=== PATIENT | male | born 1960 | race Caucasian/White ===

== ENCOUNTER 2021-10-10 15:12 | Outpatient (CLI) | payer OTHER, SELFPAY ==
--- NOTE | ~2021-10-10 | US_ITS ---
EXAMINATION: US venous doppler [facility] DATE: 10/10/2021 16:11 INDICATION: Left lower limb edema. TECHNIQUE: Grayscale ultrasound images without and with compression and Doppler ultrasound images of the left lower extremity veins were obtained. COMPARISON: None. FINDINGS: The visualized portions of left common femoral vein, profunda (deep) femoral vein, femoral vein, popl iteal vein, peroneal veins, posterior tibial veins, and greater saphenous vein outflow are patent. IMPRESSION: 1. No deep venous thrombosis. Reviewed, dictated and finalized at location A. UNITY OUTREACH DIRECTOR
== END 2021-10-10 15:13 | disposition home or self-care (01) ==
LOC: ANHIMG 15:22
PROVIDERS: PCP Physician Assistant; Visit Provider Physician Assistant
DX: R60.0 Localized edema (principal)
CPT/HCPCS: 93971

== ENCOUNTER 2023-05-23 15:00 | Outpatient (RCR) | payer OTHER, SELFPAY ==
--- NOTE | 2023-03-29 12:01 | PTOPEVAL1 ---
Assessment and note entered by Orly Cody, PT Evaluation Information Assessment Status Evaluation Diagnosis R shoulder arthroscopy Onset February 20, 2023 Subjective Information Patient is 1 month post op R shoulder arthroscopy. Patient had sling removed this week, patient instructed by dr to avoid lifting anything heavier than a dinner plate also educated to avoid abduction. Patient has pulleys at home and MD educated to perform for 1 hour daily in 15 minute intervals. Pain currently reported as 2/10 in R shoulder. 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 Reported Pain Level Pain Score 3: Self Report Assessment PT Clinical Summary Patient presents following R shoulder arthroscopy. Patient currently rating pain as 3/[address] Cardenas no AROM or strengthening at this time, per patient no abduction. Patient presents with decreased passive range of motion, decreased isometric R shoulder strength, postural impairments, and pain. Patient would benefit from skilled therapy services 3x/wk for 4 wks to improve R shoulder mobility and decrease pain Plan of Care Interventions Hot Pack/Cold Pack,Manual Lymph Drainage,Manual Therapy,Neuro Re-education,Patient/Caregiver Education,Therapeutic Activities,Therapeutic Exercise Other Interventions taping, cuping, iastm PT Services Indicated Yes Treatment Frequency and 3x/wk for 4 wks Duration These treatments will address the objective and functional deficits as defined above. The patient will be advanced safely and appropriately in order for the patient to progress towards his/her prior level of function. Additional exercises will be introduced and as well as a comprehensive home exercise program upon discharge, if needed, ?to ensure carryover of functional gains achieved in the clinic. This treatment plan has been reviewed and agreement upon by the patient.
--- NOTE | 2023-03-29 12:02 | OPREHPOC ---
Outpatient Therapy Plan of Care This is a Multidisciplinary Plan of Care that may contain components documented by all disciplines (PT, OT, and ST.) PT Problem 1 PT Problem #1 Knowledge Deficit PT Goal 1 Goal Patient will demonstrate independence with home exercise program PT Problem 2 PT Problem #2 Impaired Range of Motion PT Goal 1 Goal Patient will demonstrate passive R shoulder flexion 120 degrees Patient will demonstrate passive R shoulder external rotation to 70 degrees PT Problem 3 PT Problem #3 Pain PT Goal 1 Goal Patient will report R shoulder pain as 1/10 PT Problem 4 PT Problem #4 Impaired Strength PT Goal 1 Goal Patient will grossly demonstrate 4/5 R shoulder strength as allowed by protocol
--- NOTE | 2023-04-26 10:35 | PTOPREEVAL ---
Assessment and note entered by Orly Cody, PT Evaluation Information Assessment Status Progress Diagnosis R shoulder arthroscopy Onset February 20, 2023 Subjective Information Patient reports pain as R shoulder 1/, reports good compliance with home exercise program. Reports surgeon was happy with his range of motion and directed to begin strengthening and continue with stretching. Reported Pain Level Pain Score 1: Self Report Pain Score 1: Self Report Assessment PT Clinical Summary Patient has progressed well with physical therapy at this time with improvements noted in R shoulder range of motion. Patient presents with decreased R shoulder flexion/abduction/external rotation active range of motion with capsular tightness, R shoulder weakness, and postural impairments at this time. Recommending skilled PT services 1-2x/ wk for 4 weeks to improve range of motion, increase strength in order to reduce R shoulder pain and return to daily activities. Plan of Care Interventions Hot Pack/Cold Pack,Manual Therapy,Patient/ Caregiver Education,Therapeutic Activities, Therapeutic Exercise Other Interventions cupping, taping, iastm PT Services Indicated Yes Treatment Frequency and 1-2x/wk for 4 weeks Duration These treatments will address the objective and functional deficits as defined above. The patient will be advanced safely and appropriately in order for the patient to progress towards his/her prior level of function. Additional exercises will be introduced and as well as a comprehensive home exercise program upon discharge, if needed, ?to ensure carryover of functional gains achieved in the clinic. This treatment plan has been reviewed and agreement upon by the patient.
--- NOTE | 2023-04-26 10:36 | OPREHPOC ---
Outpatient Therapy Plan of Care This is a Multidisciplinary Plan of Care that may contain components documented by all disciplines (PT, OT, and ST.) PT Problem 1 PT Problem #1 Knowledge Deficit PT Goal 1 Goal Patient will demonstrate independence with home exercise program PT PROGRESS NOTE 1. Patient will demonstrate independence with HEP goal continues Progress Partially Met PT Problem 2 PT Problem #2 Impaired Range of Motion PT Goal 1 Goal Patient will demonstrate passive R shoulder flexion 120 degrees Patient will demonstrate passive R shoulder external rotation to 70 degrees PT PROGRESS UPDATE 1. met, goal upgraded to increase R shoulder passive flexion to 180 2. met, goal upgraded to increase R shoulder external rotation to 90 Progress Partially Met PT Problem 3 PT Problem #3 Pain PT Goal 1 Goal Patient will report R shoulder pain as 1/10 PT PROGRESS UPDATE 1. goal continues, patient will report R shoulder pain 1/10 Progress Partially Met PT Problem 4 PT Problem #4 Impaired Strength PT Goal 1 Goal Patient will grossly demonstrate 4/5 R shoulder strength as allowed by protocol PT PROGRESS UPDATE 1. met upgrade goal patient will demonstrate R external rotation 4+/5
--- NOTE | 2023-05-23 09:34 | PCPTNOTE ---
PT charge error. 04/26 PT mod eval charge removed after being incorrectly entered.
--- NOTE | 2023-05-23 15:36 | PTOPDC ---
Assessment and note entered by Orly Cody, PT Evaluation Information Assessment Status Discharge Diagnosis R shoulder arthroscopy Onset February 20, 2023 Subjective Information patient reports he feels ready to DC from PT at this time, reports minimal pain with activity. Reported Pain Level Pain Score 1: Self Report Additional Pain Score Comments reported as 0/10 at rest and during movement reports deep bruise type of pain Assessment PT Clinical Summary patient has been participating in physical therapy s/p R rotator cuff repair. Patient has demonstrated improvements in R shoulder pain, AROM /PROM, strength, and functional mobility. Patient is independent with home exercise program at this time, will DC from PT Plan of Care PT Services Indicated No
== END 2023-05-24 07:39 | disposition home or self-care (01) ==
LOC: ANHPT 15:00
PROVIDERS: PCP Physician Assistant
DX: Z48.89 Encounter for other specified surgical aftercare (principal); Z98.890 Other specified postprocedural states
CPT/HCPCS: 97110; 97112; 97140; 97162; 97530

== ENCOUNTER 2024-12-09 08:27 | Outpatient (CLI) | payer MEDICARE, SELFPAY ==
--- NOTE | 2024-12-09 | ECG_ITS ---
Test Date: 2024-12-09 09:21:02 Measurements Intervals [place] Rate: 71 P: 60 [place]: 139 QRS: -13 QRSD: 91 T: 31 QT: 360 QTc: 393 Interpretive Statements SINUS RHYTHM CONSIDER ANTERIOR INFARCT, AGE INDETERMINATE BASELINE ARTIFACT- I, III, AVL ABNORMAL ECG No previous ECG available for comparison Electronically Signed On 12-09-2024 09:37:39 PAINTING INSTRUCTOR by Dallas Samayoa D.O.
--- NOTE | ~2024-12-09 | XR_ITS ---
EXAMINATION: XR chest 2V DATE: 12/09/2024 08:51 INDICATION: Battery end-of-life of spinal cord stimulator. TECHNIQUE: Frontal and lateral views of the chest were obtained. COMPARISON: None. FINDINGS: There is no pneumonia, pleural effusion, or pneumothorax. The heart size is normal. There a re epidural electrodes in thoracic spine. IMPRESSION: 1. No acute cardiopulmonary disease. Reviewed, dictated and finalized at location A. [facility]INER
--- OUTSIDE RECORDS SUMMARY | 2024-12-09 09:04 | XMS_ITS | Continuity of Care Document ---
Author Organization [facility] Address [address] [place] [address] Phone Care Team Providers Care Shoe Repairer Helper Name Role Phone Abbe Ireland MD Unavailable Unavailable Advance Directives Directive Yes / No Effective Date File Name No Information Encounters Encounter Description Practice Location Reason(s) For Visit Diagnoses Date Provider Providers Copied on Encounter [facility], [address], [place], [place], [id number], [place] tel:[phone] [facility] No Information Shu Mcadams. [address] [place], [place], [id number], [place]. tel:[phone] Referring Provider: Luca Pereira MD, [address] [place], [address]. tel:[phone] Family History Family Member Type Diagnosis Age At Onset No Information Payers Payer name Insurance type Covered libertarian ID Authoriza tion(s) [facility] CI [id number] Social History Type Description Quantity Date Captured Comments Sex Male Smoking Status No Information Chief Complaint And Reason For Visit No Information Reason For Referral Reason For Referral No Information History Of Present Illness Encounter Date Complaint History Of Prese nt Illness No Information Functional Status Date Functional Assessmen t No Information Instructions Date Instruction Additional Infor mation No Information Assessments Type Assessment Date No Information Patient Care Teams Name Effective Dates (start - stop) Status Members No Information
--- OUTSIDE RECORDS SUMMARY | 2024-12-09 09:04 | XMS_ITS | Encounter Summary ---
Author Organization [facility] Address [address] [place] [address] Care Team Providers Care Chemistry Physics Teacher Name Role Phone Foster Burnett MD Primary Care Provider [phone] Parent Lorena HEATON Unavailable [phone] ParentLorena Primary Care Provider [phone] Encounter Details Date Type Department Care Team (Late Contact Info) Description 08/28/2018 Abstract [facility] Multispecialty Care - [facility] [address] [place] [address] Dane Cardenas MD [address] [address] [place], [place] [id number] Social History Tobacco Use Types Packs/Day Years Used Date Smoking Tobacco: Former Cigarettes Q uit: 07/01/2018 Cigars Smokeless Tobacco: Never Alcohol Use Standard Drinks/Week Comments Yes 0 (1 standard drink = 0.6 oz pure alcohol) 1-2 drings daily (a glass of wine or beer with dinner) Sex and Gender Information Value Date Recorded Sex Assigned at Not on file Legal Sex Male 2:45 PM CDT Gender Identity Not on file Sexual Orientation Not on file documented as of this encounter Plan of Treatment Upcoming Encounters Date Type Department Care Team (Late st Contact Info) Description 02/26/2025 1:30 PM CDT Office Visit [facility]-[address] [address] Jesus Ferris MD [address] [facility] [address] [place] [phone] documented as of this encounter Visit Diagnoses Not on filedocumented in this encounter Care Teams Chemistry Physics Teacher Relationship Specialty Start Date End Date Foster Burnett MD [address] [place] [address] PCP - General FAMILY PRACTICE 07/15/18 12/23/22 Lorena Venegas PA [address] [place] [address] PCP - General FAMILY PRACTICE 12/24/22 Lorena Venegas PA [address] [place] [address] FAMILY PRACTICE 10/05/22 documented as of this encounter
--- OUTSIDE RECORDS SUMMARY | 2024-12-09 09:04 | XMS_ITS | Clinical Summary ---
Author Organization [facility] Address [address] [place] [address] Care Team Providers Care Optical Goods Drill Operator Name Role Phone Parent, Lorena HEATON Primary Care Provider [phone] Active Problems Problem Noted Date Diagnosed Date Degeneration of intervertebral disc of cervical region 03/08/2010 Cephalalgia 10/19/2009 Medical History Medical History Date Comments Personal history of other sp ecified conditions History of heartburn - (Adde d by TW Conv) Personal history of other in fectious and parasitic diseases History of hepatitis - (Adde d by TW Conv) Family History Medical History Relation Name Comments Cancer Other Cancer - (Added by TW Conv) Relation Name Status Comments Other Social History Tobacco Use Types Packs/Day Years Used Date Smoking Tobacco: Never Assessed Sex and Gender Information Value Date Recorded Sex Assigned at Not on file Legal Sex Male 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 Gender Identity Not on file Sexual Orientation Not on file Obstetrics History Plan of Treatment Health Maintenance Due Date Last Done Comments Colon Cancer Screening-Colonoscopy 1959 Depression Screening 1959 Fall Risk Assessment 1959 Hepatitis C Screening 1959 Prostate Cancer Screening-PSA 1959 Hepatitis B Screening 1977 Zoster Vaccine (1 of 2) 2009 Covid-19 Vaccine (2023-2 5 season) 2024 09/01/2022, 09/23/2021, 01/03/2021 Influenza Vaccine (#1) 2024 3, 09/01/2022, 08/28/2021, Additional history exists Abdominal Aortic Aneurysm (A AA) Screen 2024 Pneumococcal vaccine 65+ (1 of 1 - PCV) 2024 Well Visit 65+ 2024 DTaP/Tdap/Td Vaccine (3 - Td or Tdap) 04/16/2026 04/16/2016, 06/16/2007 Insurance MEDICARE SOLUTIONS MEDICARE SOLUTIONS Care Teams Optical Goods Drill Operator Relationship Specialty Start Date End Date Lorena Venegas PA [address] [place] [address] PCP - General Family Practice 07/29/24
--- OUTSIDE RECORDS SUMMARY | 2024-12-09 09:04 | XMS_ITS | Referral Summary ---
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
--- OUTSIDE RECORDS SUMMARY | 2024-12-09 09:04 | XMS_ITS | Data Portability ---
Author Organization [facility] Address [address] [place] [address] Care Team Providers Care Marketing Intelligence Manager Name Role Phone ADDISON JASSO Electroplating Worker PARENTLORENA Primary Care Provider [phone] Assessment No assessment recorded. Plan of Treatment Reminders Order Date Submit Date Provider Last Modified By Organization Details Last Modified Time Details Appointments None recorded. Lab PSA, serum or plasma 2023 024 [facility], [address], [place], [address], 4 12:22:47 CBC w/ auto diff 2023 024 [facility], [address], [place], [address], 4 12:22:46 Referral orthopedic surgeon referral - Please contact patient for appt, please schedule with Dr. Cardenas 2022 023 NEERU Cardenas MD, [address] [place], [address], 3 09:53:16 physical therapist referral 2023 024 [facility] (Outpatient Physical Therapy), [address], [place], [address], 4 10:28:43 Procedures None recorded. Surgeries None recorded. Imaging None recorded. Medication Orders Kenalog 40 mg/mL suspension for injection 2023 024 [email or web address] Not available 16:35:36 gabapentin 100 mg capsule 2023 025 [facility] [address] [facility], [address] [place] [address] [address] , [place], [address], 15:25:44 Patient TargetsNo targets recorded. Patient InstructionsNo instructions recorded. Reason for Referral Orthopedic Surgeon Referral for Rupture of rotator cuff of right shoulder Please contact patient for appt, please schedule with Dr. Cardenas Referring Physician: Lorena Venegas [facility], Encounter Date: 12/14/2022 Physical Therapist Referral for Hip pain Referring Physician: Lorena Venegas [facility], Encounter Date: 12/03/2023 Results Created Date Observation Date Name Description Value Unit Range Abnormal Flag Note LastModifiedBy Organization Detail LastModifiedTime 12/03/19 24 12/04/2023 CBC (INCL UDES DIFF/ PLT) white blood cell count 4.9 thous and/u L 3.8-10 .8 normal Not Available [address] [address] [place], [address], 12/04/2023 12:22:46 12/03/19 24 12/04/2023 CBC (INCL UDES DIFF/ PLT) red blood cell count 4.81 zaina on/uL 4.20-5 .80 normal Not Available [employer] [address] [address] [place], [address], 12/04/2023 12:22:46 12/03/19 24 12/04/2023 CBC (INCL UDES DIFF/ PLT) hemoglobin 14.8 g/dL 13.2-1 7.1 normal Not Available [employer] [address] [place], [address], 12/04/2023 12:22:46 12/03/19 24 12/04/2023 CBC (INCL UDES DIFF/ PLT) hematocrit 43.7 % 38.5-5 0.0 normal Not Available [employer] [address] [place], [address], 12/04/2023 12:22:46 12/03/19 24 12/04/2023 CBC (INCL UDES DIFF/ PLT) MCV 90.9 fL 80.0-1 00.0 normal Not Available [address], [address], 12/04/2023 12:22:46 12/03/19 24 12/04/2023 CBC (INCL UDES DIFF/ PLT) MCH 30.8 pg 27.0-3 3.0 normal Not Available [facility] [address], [address], 12/04/2023 12:22:46 12/03/19 24 12/04/2023 CBC (INCL UDES DIFF/ PLT) MCHC 33.9 g/dL 32.0-3 6.0 normal Not Available [address], [address], 12/04/2023 12:22:46 12/03/19 24 12/04/2023 CBC (INCL UDES DIFF/ PLT) RDW 12.9 % 11.0-1 5.0 normal Not Available [address], [address], 12/04/2023 12:22:46 12/03/19 24 12/04/2023 CBC (INCL UDES DIFF/ PLT) platelet count 241 thous and/u L 140-40 0 normal Not Available [address], [address], 12/04/2023 12:22:46 12/03/19 24 12/04/2023 CBC (INCL UDES DIFF/ PLT) MPV 11.1 fL 7.5-12 .5 normal Not Available [facility] [address], [address], 12/04/2023 12:22:46 12/03/19 24 12/04/2023 CBC (INCL UDES DIFF/ PLT) absolute neutrophils 2484 cells /uL 1500-7 800 normal Not Available [address], [address], 12/04/2023 12:22:46 12/03/19 24 12/04/2023 CBC (INCL UDES DIFF/ PLT) absolute lymphocytes 1588 cells /uL 850-39 00 normal Not Available [address], [address], 12/04/2023 12:22:46 12/03/19 24 12/04/2023 CBC (INCL UDES DIFF/ PLT) absolute monocytes 510 cells /uL 200-95 0 normal Not Available [address], [address], 12/04/2023 12:22:46 12/03/19 24 12/04/2023 CBC (INCL UDES DIFF/ PLT) absolute eosinophils 279 cells /uL 15-500 normal Not Available [address], [address], 12/04/2023 12:22:46 12/03/19 24 12/04/2023 CBC (INCL UDES DIFF/ PLT) absolute basophils 39 cells /uL 0-200 normal Not Available [address], [address], 12/04/2023 12:22:46 12/03/19 24 12/04/2023 CBC (INCL UDES DIFF/ PLT) neutrophils 50.7 % normal Not Available [address], [address], 12/04/2023 12:22:46 12/03/19 24 12/04/2023 CBC (INCL UDES DIFF/ PLT) lymphocytes 32.4 % normal Not Available [address], [address], 12/04/2023 12:22:46 12/03/19 24 12/04/2023 CBC (INCL UDES DIFF/ PLT) monocytes 10.4 % normal Not Available [employer] [address], [address], 12/04/2023 12:22:46 12/03/19 24 12/04/2023 CBC (INCL UDES DIFF/ PLT) eosinophils 5.7 % normal Not Available [employer] [address], [address], 12/04/2023 12:22:46 12/03/19 24 12/04/2023 CBC (INCL UDES DIFF/ PLT) basophils 0.8 % normal Not Available [employer] [address], [address], 12/04/2023 12:22:46 12/03/19 24 12/04/2023 PSA, TOTAL PSA, total 1.09 NG/mL < or = 4.00 normal The total PSA value from this assay syste m is stand ardiz ed again st the WHO stand conner. The test resul t will be appro ximat theodora 20% lower when cristo red to the equim olar- stand ardiz ed total PSA (Richardson man Coult er). Cristo rison of seria l PSA resul ts shoul d be inter prete d with this fact in mind. This test was perfo rmed using the Sieme ns chemi lumin escen t metho d. Value s obtai neelam from diffe rent assay metho ds canno t be used inter dubose eably . PSA level s, regar dless of value , shoul d not be inter prete d as absol [place] evide nce of the prese nce or absen ce of disea se. Not Available [address], [address], 12/04/2023 12:22:47 12/13/19 24 12/17/2023 POC CREAT ININE POC creatinine 1.1 mg/dL 0.70-1 .20 Not Available [facility] (Lab) [address], [place], [address], 12/17/2023 11:49:09 11/15/1911/08/2022 US, echoc ardio gram, trans thora cic, compl ete, w/ color flow No observ ation record ed. [email or web address] Not Available 2022 21:26:28 11/15/19 23 11/15/2022 US, echoc ardio gram, trans thora cic, compl ete, w/ color flow No observ ation record ed. [email or web address] Not Available 2022 21:26:28 01/14/20 MRI shoul doris RT wo con [facility] [place] [address] EXAMIN ATION: MRI RIGHT SHOULD ER WITHOU T CONTRA ST ACCESS ION: [id number] EXAM DATE: 023 6:23 AM REASON FOR EXAM: Right should er pain COMPAR EVITA: None TECHNI QUE: Multis equenc e multip lanar imagin g of the should er withou t intrav enous contra st. FINDIN GS: Modera te soft tissue swelli ng surrou nding the joint. ROTATO R CUFF: No signif icant rotato r cuff atroph y. Partia l articu lar sided tear at the anteri or insert ion of supras pinatu s measur es 5 mm in AP dimens ion, 7 mm medial to latera l, and involv es approx imatel y 30% of the thickn ess of the cuff. Bursal sided frayin g of supras pinatu s and infras pinatu s. BICEPS : Long head biceps anatom ically positi oned in the intert ubercu lar groove . LABRUM : No defini te labral tear, but there is irregu larity of the procedures nurse ior superi or labrum . Small tear at this site is possib le. ACROMI OCLAVI CULAR: Osteoa rthrit is. Subacr omial spurri ng and narrow ing and modera te bursit is concer ivanna for imping ement. GLENOH UMERAL : No signif icant glenoh umeral joint effusi on or cartil age loss. BONES: No eviden ce of fractu re or suspic ious bone lesion . IMPRES IGNACIO: 1. Findin gs concer ivanna for subacr omial imping ement, includ ing spurri ng and narrow ing and modera te bursit is. Associ ated bursal sided frayin g of supras pinatu s and infras pinatu s. 2. Partia l articu lar sided tear at the anteri or insert ion of supras pinatu s measur es 5 x 7 mm and involv es approx imatel y 30% of the thickn ess of the cuff. 3. No clear eviden ce of labral tear. Howeve r, there is irregu larity of the procedures nurse ior superi or labrum , small tear at this site is possib le. If detail ed labral evalua tion is desire d, consid er MR arthro gram follow -up. 4. No signif icant rotato r cuff atroph y. Referr ed By: LORENA Carrillo onical ly Signed By: Erik Lofton MD on 023 7:45 PM Interp reted By: Erik Lofton MD, 023 7:41 PM [facility] [address], [place], [address], 01/14/2023 12:15:43 01/14/20 23 01/11/2023 MRI, shoul doris, w/o contr ast No observ ation record ed. [facility] [address] [facility], [place], [address], 01/14/2023 12:15:44 02/21/[address] [facility] [address] [place] [address] This report does not contai n a radiol ogist' s interp retati on. Please review associ ated proced ure and/or operat nikhil report . [email or web address] [facility] [address], [place], [address], 02/20/2023 13:51:36 10/30/[address], chest , w/o contr ast [facility] [place] [address] EXAMIN ATION: CT Chest REPORT DATE: 10/30/19 3:53 PM INDICA TION: Aortic root dilati on, no priors COMPAR EVITA(S ): None. TECHNI QUE: CT acquis ition of the chest. Arboleda l and sagitt al reform atted images provid ed from the source data. Arboleda l and sagitt al reform atted images were obtain ed from the source data. A dose loweri ng techni que was utiliz ed for this proced ure which may includ e but is not limite d to dose reduct ion techni ques, automa jesenia exposu re contro l, and/or the use of iterat nikhil recons tructi on in accord ance with ALARA princi ple. Contra st: No intrav enous contra st. FINDIN GS: SUPPOR T DEVICE S: None. LOWER NECK: Imaged soft tissue s of the lower neck are normal . CHEST: Lungs: No consol idatio n. Centra l airway s are clear. Pleura l Space: No pleura l effusi on or pneumo thorax . Medias tinum: Aortic root and arch calcif icatio ns. Ascend ing aorta measur ing 3.7 cm at the level of the main pulmon luanne artery . Descen ding thorac ic aorta measur ing 2.9 cm at the level of the main pulmon luanne artery . Tortuo us course of the distal thorac ic aorta. Esopha kathi is normal . Heart: No cardio megaly or perica rdial effusi on. Mild to modera te arboleda ry artery calcif icatio ns. Lymph nodes: Promin ent axilla ry lymph nodes with normal fatty omar and smooth cortic es. UPPER ABDOME N: Fatty atroph y of the pancre as MUSCUL OSKELE KEERTHI: Soft tissue s: Unrema rkable . Bones: No acute osseou s abnorm ality. Spinal stimul ator within the procedures nurse ior spinal canal at the level of T7-8. Modera te right greate r than left glenoh umeral osteoa rthros is IMPRES IGNACIO: 1. Dilate d ascend ing and descen ding thorac ic aorta withou t aneury sm. 2. Additi onal chroni c/none mergen t findin gs as above. Referr ed By: ADDISON JASSO Electr onical ly Signed By: Diana Salgado DO on 10/30/19 4:03 PM Interp reted By: Diana Salgado DO, 10/30/19 3:53 PM [email or web address] [facility] [address], [place], [address], 10/31/2023 09:32:03 12/13/19 24 use echoc ardio gram W con [facility] [place] [address] Echoca rdiogr aphy Report Pat.Na me: VANNESSA BRAN Pat.ID : [id number] .Johan e: 024 Refer. MD: [id number] LOUISA Brownlee EWDPRO V EWDPRO V Exam Time: 10:50: 00 AM Study Type:E CHO WITH CARDIA C DOPPLE R COMP Height : 69 in Weight : 210 lb BSA: 2.11 m2 Age: [birth year],[age]Y Sex: M BP: 136/86 HR: 64 bpm Sonogr phr: Kevin Ellis RDCS Pat. Stat.: Outpat ient Reason for Study: Shortn ess of breath Histor y / Clinic al:Dys lipide nick, GERD, Ex-Smo ker Proced ures: 2D, M-mode , Dopple r, Color Flow, Defini ty was used to enhanc e endoca rdial defini tion. The study qualit y is techni kofi casey t. Race: W ++++++ ++++++ ++++++ ++++++ ++++++ ++++++ SUMMAR Y: ++++++ ++++++ ++++++ ++++++ ++++++ ++++++ The left ventri cular size is normal . Estima jesenia left ventri cular ejecti on fracti on is 55-60% . Left ventri cular diasto lic functi on is abnorm al (grade 1 - impair ed relaxa tion). Wall motion appear s normal in all segmen ts. Aortic root is modera tely dilate d. Ascend ing aorta is mildly dilate d. The sinus of Valsal va measur es 4.4cm. The proxim al ascend ing aorta measur es 4.0cm. Unable to reliab ly quanti brewer pulmon luanne systol ic pressu re. No eviden ce of aortic valve stenos is. Mild aortic regurg itatio n. ++++++ ++++++ ++++++ ++++++ ++++++ ++++++ FINDIN GS: ++++++ ++++++ ++++++ ++++++ ++++++ ++++++ LV: The left ventri cular size is normal . Estima jesenia left ventri cular ejecti on fracti on is 55-60% . Left ventri cular diasto lic functi on is abnorm al (grade 1 - impair ed relaxa tion). WM: Wall motion appear s normal in all segmen ts. RV: The right ventri cular size is normal . Right ventri cular systol ic functi on is normal . LA: The left atrial size is normal . The left atrial volume is normal ( less than 34 ml/M2) . RA: Right atrial size is normal . IAS: Atrial septum appear s intact . SKYLA: No eviden ce of perica rdial effusi on. AO: Aortic root is modera tely dilate d. Ascend ing aorta is mildly dilate d. The sinus of Valsal va measur es 4.4cm. The proxim al ascend ing aorta measur es 4.0cm. PA: Unable to reliab ly quanti brewer pulmon luanne systol ic pressu re. SVn: Inferi or vena cava is normal . Inferi or vena cava shows >50% collap se with respir ation consis tent with normal right atrial pressu re. AV: The aortic valve is trilea flet. No eviden ce of aortic valve stenos is. Mild aortic regurg itatio n. Mild aortic valve sclero sis. MV: No eviden ce of mitral regurg itatio n. No eviden ce of mitral valve stenos is. PV: Struct urally normal pulmon ic valve. No eviden ce of pulmon ic valve stenos is. No eviden ce of pulmon ic regurg itatio n. TV: Struct urally normal tricus pid valve. No eviden ce of tricus pid regurg itatio n. No eviden ce of tricus pid valve stenos is. ++++++ ++++++ ++++++ ++++++ ++++++ ++++++ MEASUR EMENTS : ++++++ ++++++ ++++++ ++++++ ++++++ ++++++ DOPPLE R LVOT LVOTpk PG 4 mmHg LVOTmn PG 2 mmHg LVOTpk Jorge 102 cm/s (70-11 0)+ LVOT SV 77 ml LVOT TVI 24.5 cm Right Atrium RA Press 8 mmHg Simpso n's Disk 20 Pulmon luanne Veins PVnpkV eld 34.5 cm/s PVnVs/ Vd 1.8 PVnpkV els 62.4 cm/s PVn A Dur 109 msec AV Forwar d Flow AV TVI 34.3 cm AV pkPG 10 mmHg AV pkVel 158 cm/s (100-1 70)+ Area (TVI) 2.24 cm2 (3-5)* AV mnPG 5 mmHg Area (Jorge) 2.03 cm2 (3-5)* MV Forwar d Flow MV DeTm 306 msec MV pkE 56.6 cm/s (60-13 0)* MV E/A 0.6 MV pkA 96.1 cm/s PV Forwar d Flow PV TVI 23.3 cm PV mnVel 70.3 cm/s PV pkVel 92.4 cm/s (60-90 )+* PV mnPG 2 mmHg PV pkPG 3 mmHg PV AC 136 msec TV Forwar d Flow TV pkE 57.1 cm/s Lat E' Lat e 6.2 cm/s Lat E/E' Lat E/e 9.1 Med E' Med e 6.85 cm/s Med E/E' Med E/e 8.3 Aortic Valve Aortic Valve Ar 1.06 Aortic Valve Ve 0.65 PV Antegr stacie Flow Accele ration Sl 560 cm/s2 Right Ventri maksim Right Ventri maksim 12.4 cm/s 2D Left Ventri maksim LVIDd 4.55 cm (3.6-5 .2)+ LV ESV 53.7 ml LVIDs 2.64 cm (2.3-3 .9)+ LV ESV 60.4 ml LngAxd 9.02 cm LVESV BP 57 ml LngAxd 9.19 cm LV EF 52.6 % LV EDV 113 ml LV EF 55.9 % LV EDV 137 ml LV EF BP 54.8 % LVEDV BP 126 ml LV SV 59.4 ml LngAxs 8.05 cm LV SV 76.6 ml LngAxs 7.99 cm LV SV BP 69 ml LVPW LVPWd 1.16 cm Right Ventri maksim RVIDd 4.04 cm (2.6-4 .3)+ Right Ventri maksim 28.9 mm Right Ventri maksim 33.3 mm Right and Left 0.888 Major [place] 86.4 mm Ventri cular Septum IVSd 1.15 cm Aorta Ao Rtd 4.2 cm (zsc 3.6)+* Ao Asc 3.9 cm (zsc 4.3)+* LVOT LVOT 2 cm LVOTAr ea 3.14 cm2 Ratios IVS Inferi or vena cava IVC Diam 11.6 mm RA Single Plane Right Atrium MO 13.7 mm Right Atrium Sy 38.2 ml Right Atrium Sy 51.2 mm Right Atrium Sy 18.1 ml/m2 Right Atrium Sy 15.6 cm2 MMODE Ratios LA/Ao 1.14 (0.87- 1.1)* Aorta Ao Rt 3.5 cm (2-3.7 ) Aortic Valve AV sep 1.4 cm (1.5-2 .6)* Left Atrium LAIDs 4 cm TA Tricus pid Annul 33.5 mm 2023 07:53 PM Addison Jasso M.D. [email or web address] [facility] [address], [place], [address], 12/16/2023 17:01:57 12/20/19 24 cta coron luanne W scori ng [facility] [place] [address] Examin ation: CTA arboleda ry arteri es with 3D imagin g with contra st; CT arboleda ry artery calciu m scorin g Access ion: [id number] Exam date/t jonathan: 024 12:21 PM Reason For Exam: ABN EKG / SOB. Chest pain, nonspe cific Compar evita: 2022 Techni que: Comput ed tomogr aphy was perfor med along the axial plane using CT arteri ogram techni que with thin 3 mm slices obtain ed during bolus intrav enous admini strati on of 80 ml of Isovue [address] Recons tructi on and postpr ocessi ng imagin g of the angiog raphic images was perfor med at the comput er work statio n. 3-D angiog raphic postpr ocessi ng was perfor med at the workst ation. Automa jesenia exposu re contro l was utiliz ed for dose reduct ion. Unenha nced CT was also obtain ed throug h the heart for the purpos e of arboleda ry artery calciu vesna cox g. CT arboleda ry angiog barvo was perfor med at the direct ion of the cardio logy servic e. The cardio logist is respon sible for interp retati on of the arboleda ry artery vessel s and heart. Interp retati on the surrou nding lungs as well as medias tinal soft tissue s beyond the perica rdium is provid ed by the radiol ogist. Incide ntal findin gs: Ectasi a of the ascend ing aorta measur ing 3.9 cm. Minima l athero sclero tic plaque of the visual ized aorta. Small hiatal hernia . No suspic ious adenop athy. Tiny left lower lobe pulmon luanne nodule measur ing 3 mm (image 34), stable in retros pect. Spinal neuros timula tor leads noted. Thorac ic spondy losis. Calciu m scorin g result s: Left main: 29.9 LAD: 28 Circum flex: 26.5 Right arboleda ry: 0 Total Score: 84.4 Calciu m score guidel nessa: Total Score* Calciu m Plaque [place] *Risk *Proba bility of signif icant CAD 0 No Plaque Very Low Very unlike ly 1-10 Minima l Plaque Low Unlike ly 11-100 Mild Plaque Modera te Low likeli thornton of signif icant stenos is <50% 101-40 0 Modera te Plaque Modera tely High Modera te likeli thornton of signif icant stenos is (>50%) Over 400 Extens nikhil Plaque High High likeli thornton of signif icant stenos is (>50%) The amount of arboleda ry artery calcif icatio n correl ates with the severi ty of arboleda ry athero sclero sis and the probab ility of future signif icant event. Calcif icatio n is not site specif ic for stenos is and does not identi fy non-ca lcifie d athero sclero tic plaque , but rather indica beth the extent of athero sclero sis in the arboleda ry arteri es overal l. The score may be used as an indica tor for risk factor modifi cation or additi onal cardia c testin g. Signif icant change in calciu m score over time may be indica tive of subseq uent diseas e develo pment or useful as a benchm ark to assess preven tative progra ms. =====I MPRESS ION:== === 1. Total arboleda ry artery calciu m score of 84.4 repres ents modera te risk catego ry and corres ponds to the 41st percen tile for age and gender matche d popula tion. 2. Tiny left pulmon luanne nodule is likely postin flamma tory. If the patien t is consid ered high risk catego ry, follow -up chest CT would be recomm ended in 12 months . 3. Ectati c ascend ing aorta measur ing 3.9 cm. 4. Evalua tion of arboleda ry artery angiog bravo is to be perfor med per cardio logy servic e. Please see separa te report . ====== ====== ====== === Ordere d By: ADDISON JASSO Electr onical ly Signed By: Karlos Pina MD on 4:17 PM Interp reted By: Karlos Pina MD, 4:03 PM [email or web address] [facility] [address], [place], [address], 12/22/2023 23:11:08 01/06/20 24 cta coron luanne W scori ng [facility] [address] [address] Addend by: ADDISON JASSO on SatJan 06, 2024 10:42: 47 AM CDT Table format ting from the origin al result was not includ ed. CT ANGIOG LYNNE (Cardi ology Portio n) Jer t Name: Vannessa bell : 1959 Date of Study: 37 Interp reting Cardio logist : ADDISON JASSO M.D. Indica tion: Abnorm al EKG, shortn ess of breath Histor y: 63-yea r-old male with hypert ension , GERD, hyperc holest erolem ia PRE PROCED URE DATA Baseli ne heart rate is 57 beats per minute . Blood pressu re is 155/94 mmHg. A 20 gauge Heploc k was insert ed in the right antecu bital vein and flushe d with a 0.9 NACL. PROCED URE DATA Baseli ne heart rate is 48 beats per minute . Blood pressu re is 138/90 mmHg. Medica tion totals : Metopr olol 0 mg IVP Nitrog lyceri n sublin gual tab times [address] total is 80 ml follow ed by a flush of 0.9 normal saline 50 ml POST PROCED URE DATA Post proced ure heart rate is 56 beats per minute . Blood pressu re is 116/84 mmHg. Patien t tolera jesenia proced ure well. IV access discon tinued and band aide dressi ng applie d to site. TECHNI QUE Comput ed tomogr aphy was perfor med along the axial plane with 0.75 mm slice thickn ess utiliz ing IV admini strati on of Isovue 370. FINDIN GS The arboleda ry calciu m score is 84.4. The qualit y of the study is good. CARDIA C STRUCT URES Left Atrium : Mildly enlarg ed. Left Atrial Append age: Chicke n wing morpho logy. There is no appare nt left atrial append age fillin g defect . Intra- atrial Septum : Normal . Left Ventri maksim: Cavity is normal in size. Concen tric left ventri cular hypert rophy: None. Left ventri cular ejecti on fracti on: 63%. Wall motion : Normal . No stigma ta of prior infarc tion. No abnorm al fillin g defect . Aorta: Aortic root measur es 4.0cm, which is abnorm al. Ascend ing aorta measur es 3.4cm, which is normal . Pulmon luanne Arteri es: Normal in size. There is no proxim al fillin g defect . Pulmon luanne Vein: Normal pulmon luanne venous draina ge. Four noted pulmon lunane veins. Two on the right and two on the left. Perica rdium: Normal thickn ess withou t signif icant effusi on or calciu m presen t. Cardia c Valves : No thicke ivanna and calcif icatio ns in the aortic and mitral valves . There is no mitral annula r calcif icatio n. ARBOLEDA RY ANATOM Y Left Main: Large calibe r vessel with a normal take off from the left arboleda ry cusp that bifurc ates to form a left anteri or descen ding and a left circum flex artery . 10% stenos is at the distal vessel . Calcif ied plaque distal left main. Left Anteri or Descen ding Artery : 15% stenos is at the proxim al vessel . Calcif ied plaque ostium LAD. It gives off 2 diagon al branch es. First diagon al: Modera te calibe r vessel . Patent with no eviden ce of plaque . Second diagon al: Large calibe r vessel . Patent with no eviden ce of plaque . Circum flex Artery : Non-do minant . Patent with no eviden ce of plaque . First obtuse margin al: Modera te calibe r vessel . Patent with no eviden ce of plaque . Second obtuse margin al: Large calibe r vessel . Patent with no eviden ce of plaque . Right Arboleda ry Artery : Domina nt. Shephe [address]'s [place] proxim al RCA. Timber Management Technician ior descen ding artery : Large calibe r vessel . Patent with no eviden ce of plaque . Right procedures nurse olater al branch : Large calibe r vessel . Patent with no eviden ce of plaque . ADDITI ONAL NON-CA RDIAC STRUCT URES AND LUNGS READ BY RADIOL ELLIOT PEÑA. IMPRES IGNACIO Stenos is: Mild stenos is of distal left main. Plaque (Calci um Score) : Overal l, there is a mild amount of arboleda ry plaque . Ejecti on Fracti on: 63%. RECOMM ENDATI ON: CAD RADS score is 1 P1- Consid er non-at herosc leroti c causes of sympto ms and risk factor modifi cation or preven tive pharma cother apy. Interp reting Cardio logist : ADDISON JASSO M.D. Examin ation: CTA arboleda ry arteri es with 3D imagin g with contra st; CT arboleda ry artery calcingridu vesna elias Access ion: [id number] Exam date/t jonathan: 024 12:21 PM Reason For Exam: ABN EKG / SOB. Chest pain, nonspe cific Compar evita: 2022 Techni que: Comput ed tomogr aphy was perfor med along the axial plane using CT arteri ogram techni que with thin 3 mm slices obtain ed during bolus intrav enous admini strati on of 80 ml of Isovue [address] Recons tructi on and postpr ocessi ng imagin g of the angiog raphic images was perfor med at the comput er work statio n. 3-D angiog raphic postpr ocessi ng was perfor med at the workst [employer]. Automa jesenia exposu re contro l was utiliz ed for dose reduct ion. Unenha nced CT was also obtain ed throug h the heart for the purpos e of arboleda ry artery calciu m scorin g. CT arboleda ry angiog bravo was perfor med at the direct ion of the cardio logy servic e. The cardio logist is respon sible for interp retati on of the arboleda ry artery vessel s and heart. Interp retati on the surrou nding lungs as well as medias tinal soft tissue s beyond the perica rdium is provid ed by the radiol ogist. Incide ntal findin gs: Ectasi a of the ascend ing aorta measur ing 3.9 cm. Minima l athero sclero tic plaque of the visual ized aorta. Small hiatal hernia . No suspic ious adenop athy. Tiny left lower lobe pulmon luanne nodule measur ing 3 mm (image 34), stable in retros pect. Spinal neuros timula tor leads noted. Thorac ic spondy losis. Calciu m scorin g result s: Left main: 29.9 LAD: 28 Circum flex: 26.5 Right arboleda ry: 0 Total Score: 84.4 Calciu m score guidel nessa: Total Score* Calciu m Plaque [place] *Risk *Proba bility of signif icant CAD 0 No Plaque Very Low Very unlike ly 1-10 Minima l Plaque Low Unlike ly 11-100 Mild Plaque Modera te Low likeli thornton of signif icant stenos is <50% 101-40 0 Modera te Plaque Modera tely High Modera te likeli thornton of signif icant stenos is (>50%) Over 400 Extens nikhil Plaque High High likeli thornton of signif icant stenos is (>50%) The amount of arboleda ry artery calcif icatio n correl ates with the severi ty of arboleda ry athero sclero sis and the probab ility of future signif icant event. Calcif icatio n is not site specif ic for stenos is and does not identi fy non-ca lcifie d athero sclero tic plaque , but rather indica beth the extent of athero sclero sis in the arboleda ry arteri es overal l. The score may be used as an indica tor for risk factor modifi cation or additi onal cardia c testin g. Signif icant change in calciu m score over time may be indica tive of subseq uent diseas e develo pment or useful as a benchm ark to assess preven tative progra ms. =====I MPRESS ION:== === 1. Total arboleda ry artery calciu m score of 84.4 repres ents modera te risk catego ry and corres ponds to the 41st percen tile for age and gender matche d popula tion. 2. Tiny left pulmon luanne nodule is likely postin flamma tory. If the patien t is consid ered high risk catego ry, follow -up chest CT would be recomm ended in 12 months . 3. Ectati c ascend ing aorta measur ing 3.9 cm. 4. Evalua tion of arboleda ry artery angiog bravo is to be perfor med per cardio logy servic e. Please see separa te report . ====== ====== ====== === Ordere d By: ADDISON GARCIARehoboth [facility] onical ly Signed By: Karlos Pina MD on 4:17 PM Interp reted By: Karlos Pina MD, 4:03 PM [email or web address] [facility] [address] [facility], [place], [address], 01/06/2024 13:40:28 07/31/20 24 07/29/2024 XR, hip, unila teral , 2 or 3 view No observ ation record ed. [facility] [address], [place], [address], 07/31/2024 19:55:17 Result Notes None recorded. 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 James Johnson MD Attn: Accounting ,[address] [facility], [place], [address] , [place] [facility] 2 16:02:40 Insertio n of skeletal muscle stimulat or 08950887 Active 2018 James Johnson MD Attn: Accounting ,[address] [facility], [place], [address] , [place] [facility] 2 16:02:40 Gastro-e sophagea l reflux disease with esophagi tis 969645185 Active 2018 James Johnson MD Attn: Accounting ,[address] [facility], [place], [address] , [place] [facility] 2 16:02:40 Body mass index 25-29 - overweig ht 664484813 Active 2021 James Johnson MD Attn: Accounting ,[address] [facility], [place], [place], [address] [place] [address] , [place] [facility] 2 16:02:24 Long-ter m drug therapy Active 2021 James Johnson MD Attn: Accounting ,[address] [facility], [place], [address] , [place] [facility] 2 16:02:33 Acute sinusiti s 53211566 Active 2021 Location : None;Sev erity: Moderate ;Progres s: Stable;A dded By: Sindhu Burnett;Add to Current Problems : NO James Johnson MD Attn: Accounting ,[address] [facility], [place], [address] , [place] [facility] 2 16:24:35 Cigar smoker 30627321 Active 2021 James Johnson MD Attn: Accounting ,[address] [place], [address] , [place] [facility] 2 09:53:42 Hyperlip idemia 79997628 Active 2023 FLROINA Duran Attn: Accounting ,[address] [facility], [place], [address] , [facility] 4 11:42:49 Aortic murmur 544598806 Active 2024 full cardiac work up. FLORINA Patricio Attn: Accounting ,[address] [facility], [place], [address] , [facility] 5 15:44:00 Pure hypergly ceridemi a [id number] Completed 201107/27/2019 Location : None;Sev erity: Moderate ;Progres s: Stable;A dded By: iSndhu Burnett;Add to Current Problems : NO FLORINA Duran Attn: Accounting ,[address] [facility], [place], [address] , [facility] 9 15:10:17 Low back pain 968533971 Active 2011 Location : None;Sev erity: Moderate ;Progres s: Stable;A dded By: Analisa Tierney;Add to Current Problems : YES Not Available [facility] 0 16:17:47 Acute upper respirat ory infectio n 42693722 Completed 201212/04/2012 Location : None;Sev erity: Moderate ;Progres s: Stable;A dded By: Sindhu Burnett;Add to Current Problems : NO Not Available [facility] 7 12:01:06 Cellulit is and abscess of upper arm [id number] Completed 201207/27/2019 Location : None;Sev erity: Moderate ;Progres s: Stable;A dded By: Sindhu Burnett;Add to Current Problems : NO FLORINA Duran Attn: Accounting ,[address] [facility], [place], [address] , [facility] 9 15:10:12 Benign essentia l hyperten ignacio 8176199 Completed 201207/27/2019 Location : None;Sev erity: Moderate ;Progres s: Stable;A dded By: Sindhu Burnett;Add to Current Problems : NO FLORINA Duran Attn: Accounting ,[address] [facility], [place], [address] , [facility] 9 15:19:49 Acute sinusiti s 68177950 Completed 201311/30/2013 Location : None;Sev erity: Moderate ;Progres s: Stable;A dded By: Sindhu Burnett;Add to Current Problems : NO James Johnson MD Attn: Accounting ,[address] [facility], [place], [place], [address] [place] [address] , [facility] 2 16:24:35 Cramp in limb [id number] Completed 201311/30/2013 Location : None;Sev erity: Moderate ;Progres s: Stable;A dded By: Sindhu Burnett;Add to Current Problems : NO Not Available [facility] 7 12:01:06 Gastroes ophageal reflux disease 093980533 Completed 201107/27/2019 Location : None;Sev erity: Moderate ;Progres s: Stable;A dded By: Sindhu Burnett;Add to Current Problems : YES FLORINA Duran Attn: Accounting ,[address] [facility], [place], [place], [address] [place] [address] , [facility] 9 15:10:14 Screenin g procedur e Completed 201310/16/2014 Location : None;Sev erity: Moderate ;Progres s: Stable;A dded By: Sindhu Burnett;Add to Current Problems : YES Not Available [facility] 7 12:01:07 Neoplasm of digestiv e system [id number] Completed 201307/27/2019 Location : None;Sev erity: Moderate ;Progres s: Stable;A dded By: Sindhu Burnett;Add to Current Problems : YES FLORINA Duran Attn: Accounting ,[address] [facility], [place], [place], [address] [place] [address] , [facility] 9 15:10:10 Acute maxillar y sinusiti s 27423980 Completed 201402/13/2015 Location : None;Sev erity: Moderate ;Progres s: Stable;A dded By: Sindhu Burnett;Add to Current Problems : YES Not Available [facility] 7 12:01:07 Benign paroxysm al position al vertigo [id number] Completed 201505/04/2016 Location : None;Sev erity: Moderate ;Progres s: Stable;A dded By: Sindhu Burnett;Add to Current Problems : YES Not Available [facility] 7 12:01:07 Acute upper respirat ory infectio n of multiple sites Completed 201311/30/2013 Location : None;Sev erity: Moderate ;Progres s: Stable;A dded By: Yadira Valdes i;A dd to Current Problems : NO Not Available [facility] 7 12:01:07 Dizzines s and giddines s [id number] Completed 201507/27/2019 Location : None;Sev erity: Moderate ;Progres s: Stable;A dded By: Yadira Valdes i;A dd to Current Problems : YES FLORINA Duran Attn: Accounting ,[address] [place], [address] , [facility] 9 15:10:19 Knee pain Completed 201504/05/2016 Location : None;Sev erity: Moderate ;Progres s: Stable;A dded By: Yadira Valdes i;A dd to Current Problems : YES Not Available [facility] 7 12:01:07 Epidermo id cyst of skin [id number] Completed 201207/27/2019 Location : None;Sev erity: Moderate ;Progres s: Stable;A dded By: Rosa Ignacio; Add to Current Problems : NO FLORINA Duran Attn: Accounting ,[address] [place], [address] , [facility] 9 15:10:25 Open wound of hand, excludin g finger(s ) [id number] Completed 201506/15/2016 Location : None;Sev erity: Moderate ;Progres s: Stable;A dded By: Anyi Payne to Current Problems : NO Not Available [facility] 7 12:01:08 Problem Notes None recorded. Procedures Surgical History Date Name Laterality Status Provider Name and Address Organization Details Recorded Time 10/10/20 Shave Biopsy completed FLORINA Duran Attn: Accounting,[address] [facility], [place], [address], [place] [facility] 10/10/2022 15:13:34 Vasectomy completed [facility] 02/13/2018 09:58:01 Back Surgery completed [facility] - [facility] 02/13/2018 09:58:14 Imaging Results Imaging Date Name Status LastModified by Organization Details LastModified Time 11/08/2022 US, echocardiogram, transthoracic, complete, w/ color flow completed Information not available 11/15/2022 21:26:28 11/15/2022 US, echocardiogram, transthoracic, complete, w/ color flow completed Information not available 11/15/2022 21:26:28 01/13/2023 MRI shoulder RT wo con completed [address], [address], 01/14/2023 12:15:43 01/11/2023 MRI, shoulder, w/o contrast completed [facility], [place], [address], 01/14/2023 12:15:44 02/20/2023 US gd ndl placement anes completed [email or web address] [address], [place], [address], 02/20/2023 13:51:36 10/30/2023 CT, chest, w/o contrast completed [email or web address] [address], [place], [address], 10/31/2023 09:32:03 12/13/2023 use echocardiogram W con completed [address], [place], [address], 12/16/2023 17:01:57 12/20/2023 cta coronary W scoring completed [email or web address] [address], [place], [address], 12/22/2023 23:11:08 01/06/2024 cta coronary W scoring completed [address], [place], [address], 01/06/2024 13:40:28 07/29/2024 XR, hip, unilateral, 2 or 3 view completed [facility] [address], [place], [address], 07/31/2024 19:55:17 Procedure Notes None recorded. Medical Equipment None Reported. Allergies No known drug allergies Medications Name Sig Start Date Stop Date Status Note LastModified by Organization Details LastModified Time prednisone 10 mg tablet take 6 tabs daily x 3 days, then 4 tabs daily x 3 days, then 2 tabs daily x 3 days then 1 tab daily x 3 days with food 02/01 completed RxNor m: 31380 5;All ow Subst ituti on: True Not Available Not Available Not Available metoprolol tartrate 100 mg tablet TAKE 1 TABLET (100MG) ONE HOUR PRIOR TO CORONARY CTA SCHEDULED FOR 12/13/202312/03 completed Not Available Not Available Not Available ondansetron HCl 4 mg tablet TAKE 1 TABLET BY MOUTH EVERY 8 HOURS NEEDED FOR NAUSEA 05/18 completed Not Available Not Available Not Available Medrol (Chris) 4 mg tablets in a dose pack Take 1 dose pk by oral route as directed. 07/27 completed Not Available Not Available Not Available prednisone 20 mg tablet PLEASE SEE ATTACHED FOR DETAILED DIRECTION S 09/28 completed Not Available Not Available Not Available Zithromax Z-Chris 250 mg tablet TAKE 2 TABLETS (500 MG) BY ORAL ROUTE ONCE DAILY FOR 1 DAY THEN 1 TABLET (250 MG) BY ORAL ROUTE ONCE DAILY FOR 4 DAYS 07/27 completed Not Available Not Available Not Available amlodipine 5 mg tablet Take 1 tablet every day by oral route for 90 days. 2024 active Not Available Not Available Not Avai lable prochlorper azine maleate 10 mg tablet 12/30 completed Not Available Not Available Not Available hydrocodone 10 mg-acetamin ophen 325 mg tablet 12/30 completed Not Available Not Available Not Available aspirin 81 mg tablet,christin yed release TAKE 1 TABLET BY MOUTH 2 TIMES DAILY WITH MEALS FOR 30 DAYS. active Not Available Not Available No t Available Kenalog 40 mg/mL suspension for injection Take 60 mg by injection route. 07/31 completed Not Available Not Available Not Available cefadroxil 500 mg capsule Take 1 capsule(s ) by mouth q12h for 10 days 09/30 completed RxNor m: 12810 9;All ow Subst ituti on: True Not Available Not Available Not Available oxycodone-a cetaminophe n 5 mg-325 mg tablet TAKE 1 TO 2 TABLETS BY MOUTH EVERY 4 HOURS NEEDED FOR SEVERE ACUTE PAIN 05/18 completed Not Available Not Available Not Available amoxicillin 875 mg tablet 1 tablet by mouth BID for 10 days. 12/30 completed Not Available Not Available Not Available amitriptyli ne 10 mg tablet Take 1 tablet(s) by mouth at bedtime 02/04 completed RxNor m: 42303 3;All ow Subst ituti on: True Not Available Not Available Not Available meclizine 25 mg tablet 1 tab po tid prn 08/02 completed RxNor m: 81147 6;All ow Subst ituti on: True Not Available Not Available Not Available hydrocodone 7.5 mg-acetamin ophen 325 mg tablet TAKE 1 TABLET BY MOUTH EVERY 6 HOURS NEEDED FOR MODERATE PAIN. 05/18 completed Not Available Not Available Not Available cephalexin 500 mg capsule 07/22 completed Not Available Not Available Not Available lisinopril 10 mg tablet Take 1 tab daily 08/31 completed RxNor m: 68119 6;All ow Subst ituti on: True Not Available Not Available Not Available gabapentin 300 mg capsule TAKE 1 CAPSULE BY MOUTH THREE TIMES DAILY DIRECTED 12/08 completed Not Available Not Available Not Available omeprazole 20 mg capsule,del ayed release TAKE 1 CAPSULE BY MOUTH DAILY active Not Available Not Available No t Available lisinopril 20 mg-hydrochl orothiazide 25 mg tablet Take 1 tablet(s) by mouth daily 04/03 completed RxNor m: 97125 7;All ow Subst ituti on: True Not Available Not Available Not Available hydrochloro thiazide 25 mg tablet one po daily 02/02 completed RxNor m: 84303 8;All ow Subst ituti on: True Not Available Not Available Not Available mupirocin 2 % topical ointment 07/22 completed Not Available Not Available Not Available gabapentin 100 mg capsule TAKE 3 CAPSULES TWICE A DAY BY ORAL ROUTE. 12/08 completed Not Available Not Available Not Available lisinopril 10 mg-hydrochl orothiazide 12.5 mg tablet Take 2 tablets po q am 11/03 completed RxNor m: 71476 5;All ow Subst ituti on: True Not Available Not Available Not Available cefdinir 300 mg capsule TAKE 1 CAPSULE BY MOUTH EVERY 12 HOURS FOR 10 DAYS 12/14 completed Not Available Not Available Not Available fluticasone propionate 50 mcg/actuati on nasal spray,suspe nsion INSTILL 2 SPRAYS INTO EACH NOSTIRL DAILY active Not Available Not Available No t Available amoxicillin 875 mg-potassiu m clavulanate 125 mg tablet TAKE 1 TABLET BY MOUTH EVERY 12 HOURS FOR 10 DAYS 09/28 completed Not Available Not Available Not Available AcipHex 20 mg tablet,christin yed release Take 1 tablet(s) by mouth daily 12/30 completed RxNor m: 02381 0;All ow Subst ituti on: True Not Available Not Available Not Available rosuvastati n 10 mg tablet TAKE 1 TABLET BY MOUTH EVERY DAY active Not Available Not Available No t Available omeprazole 1 daily 07/27 completed Not Available Not Available Not Available omeprazole 20 mg tablet,christin yed release Take 1 tablet every day by oral route. 08/25 completed Not Available Not Available Not Available ID NOW COVID-19 Test Kit DIRECTED 10/11 completed Not Available Not Available Not Available Fluarix Quad (PF) 60 mcg (15 mcg x 4)/0.5 mL IM syringe ADM 0.5ML IM UTD 11/22 completed Not Available Not Available Not Available Vitals Date Recorded Body height Body mass index (BMI) Body weight Body temperature Oxygen saturation Oxygen saturation in Arterial blood by Pulse oximetry Heart rate Systolic blood pressure Diastolic blood pressure Provider Name and Address Organization Details Last Updated DateTime 3 175.26 cm 30 kg/m2 04869.2 5 g 97.8 [degF] 99 % 99 % 69 /min 116 mm[Hg] 70 mm[Hg] Diana Sorensen MA [facility] 3 10:50:44 Date Recorded Body height Body mass index (BMI) Body weight Body temperature Oxygen saturation Oxygen saturation in Arterial blood by Pulse oximetry Heart rate Systolic blood pressure Diastolic blood pressure Provider Name and Address Organization Details Last Updated DateTime 4 175.26 cm 31.6 kg/m2 88939.7 7 g 97.7 [degF] 99 % 99 % 75 /min 152 mm[Hg] 87 mm[Hg] Chichi Pedraza MA [facility] 4 11:09:54 Date Recorded Body height Body mass index (BMI) Body weight Oxygen saturation Oxygen saturation in Arterial blood by Pulse oximetry Heart rate Body temperature Systolic blood pressure Diastolic blood pressure Provider Name and Address Organization Details Last Updated DateTime 4 175.26 cm 31.5 kg/m2 14932.9 7 g 95 % 95 % 74 /min 98 [degF] 156 mm[Hg] 96 mm[Hg] Diana Sorensen MA [facility] 4 14:14:25 Date Recorded Body height Body mass index (BMI) Body weight Oxygen saturation Oxygen saturation in Arterial blood by Pulse oximetry Heart rate Body temperature Systolic blood pressure Diastolic blood pressure Provider Name and Address Organization Details Last Updated DateTime 4 175.26 cm 31.2 kg/m2 41536.9 9 g 99 % 99 % 77 /min 97.7 [degF] 154 mm[Hg] 81 mm[Hg] Zoraida De Luna MA [facility] 4 14:12:28 Date Recorded Body height Body mass index (BMI) Body weight Body temperature Oxygen saturation Oxygen saturation in Arterial blood by Pulse oximetry Heart rate Systolic blood pressure Diastolic blood pressure Provider Name and Address Organization Details Last Updated DateTime 5 175.26 cm 31.5 kg/m2 87329.1 7 g 97.6 [degF] 99 % 99 % 63 /min 156 mm[Hg] 101 mm[Hg] Zoraida De Luna MA [facility] 5 15:26:34 Social History Question Answer Notes LastModified by [employer] ion Details LastModified Time Tobacco Smoking Status Current Every Day Smoker cigars Zoraida De Luna MA null, [facility] 12/08/2024 15:26:10 Do You Have An Advance Directive? Yes Information not available 10/11/2021 What Is Your Level Of Alcohol Consumption? Occasional Information not available 10/10/2022 Are You Blind Or Do You Have Difficulty Seeing? No Information not available 10/11/2021 What Is Your Level Of Caffeine Consumption? Occasional Information not available 10/10/2022 In The 14 Days Before Symptom Onset, Have You Had Close Contact With A Laboratory-confir med COVID-19 While That Case Was Ill? No Information not available 10/11/2021 In The 14 Days Before Symptom Onset, Have You Had Close Contact With A Person Who Is Under Investigation For COVID-19 While That Person Was Ill? No Information not available 10/11/2021 Have You Been To An Area Known To Be High Risk For COVID-19? No Information not available 10/11/2021 Are You Currently Employed? Yes Information not available 10/11/2021 Are You Deaf Or Do You Have Serious Difficulty Hearing? No Information not available 10/11/2021 What Type Of Diet Are You Following? REGULAR Information not available 10/11/2021 Are There Any Guns Present In Your Home? No Information not available 10/11/2021 What Was The Date Of Your Most Recent Tobacco Screening? 12/08/2024 Information not available 12/08/2024 What Is Your Relationship Status? Information not available 10/11/2021 Do You Use Your Seat Belt Or Car Seat Routinely? Yes Information not available 10/11/2021 Do You Have Smoke And Carbon Monoxide Detectors In Your Home? Yes Information not available 10/11/2021 Are You Passively Exposed To Smoke? No Information no t available 10/11/2021 How Much Tobacco Do You Smoke? No Information not available 12/08/2024 Do You Feel Stressed (tense, Restless, Nervous, Or Anxious, Or Unable To Sleep At Night)? [id number] Information not available 10/11/2021 Do You Use Any Illicit Or Recreational Drugs? No Information not available 10/11/2021 Do You Use Sunscreen Routinely? Yes Information not available 10/11/2021 Has Tobacco Cessation Counseling Been Provided? Yes Information not available 12/30/2018 On What Date Was Tobacco Cessation Counseling Provided? 12/14/2022 apricema Information not available 12/14/2022 How Many Years Have You Smoked Tobacco? 30 Information not available 12/30/2018 Do You Or Have You Ever Used Any Other Forms Of Tobacco Or Nicotine? No Information not available 10/10/2022 Sex: Male Functional Status Question Answer Note LastModified by Organization D etails LastModified Time Are you able to care for yourself? Yes Information not available 10/11/2021 What is your exercise level? Moderate Information not available 10/11/2021 Mental Status None recorded. Family History Relationship Description Onset Age of this Age Resolved Age Notes LastModified by Organization Details LastModified Time Father Malignant neoplastic disease [email or web address] Not available 09:58:35 Paternal Grandfather Malignant neoplastic disease [email or web address] Not available 09:58:35 Medical History Condition Response Acid Reflux (GERD) Y High Blood Pressure Y High Cholesterol Y Immunizations Vaccine Type Date Status Note Provider Nam e and Address Organization Details Recorded Time COVID-19 vaccine, vector-nr, rS-Ad26, PF, 0.5 mL 1 completed FLORINA Duran Attn: Accounting[address], [place], [address] [place] [address], [place] [facility] 12/03/2023 11:43:33 Influenza, MDCK, quadrivalent, PF 8 completed FLORINA Duran Attn: Accounting[address] [place], [place], [address] [place] [address], [place] [facility] 12/03/2023 11:43:33 Influenza, MDCK, quadrivalent, PF 3 completed FLORINA Duran Attn: Accounting[address] [place], [place], [address] [place] [address], [place] [facility] 12/03/2023 11:43:33 Influenza, MDCK, quadrivalent, PF 2 completed FLORINA Duran Attn: Accounting[address] [place], [place], [address] [place] [address], [place] [facility] 12/03/2023 11:43:33 COVID-19, mRNA, LNP-S, PF, 30 mcg/0.3 mL dose 1 completed FLORINA Duran Attn: Accounting[address] [place], [address], [place] [facility] 12/03/2023 11:43:33 COVID-19, mRNA, LNP-S, bivalent, PF, 30 mcg/0.3 mL dose 2 completed FLORINA Duran Attn: Accounting[address] [place], [place], [address] [place] [address], [place] [facility] 12/03/2023 11:43:34 Influenza, split virus, trivalent, preservative 4 completed FLORINA Duran Attn: Accounting[address] [facility], [place], [address], [facility] 12/03/2023 11:43:34 Influenza, split virus, quadrivalent, PF 7 completed FLORINA Duran Attn: Accounting[address] [facility], [place], [address], [facility] 12/03/2023 11:43:34 Influenza, split virus, quadrivalent, PF 0 completed FLORINA Duran Attn: Accounting,[address] [facility], [place], [address], [facility] 12/03/2023 11:43:34 Influenza, split virus, quadrivalent, preservative 9 completed Not Available [facility] 11/14/2019 02:38:12 Influenza, split virus, quadrivalent, preservative 1 completed Pamela Short MA [facility], [place] - [place] 08/28/2021 17:34:20 Influenza, split virus, trivalent, PF 5 completed Not Available [facility] 06/20/2023 17:02:35 Tdap 6 completed Not Available [facility] 06/20/2023 17:02:34 Tdap 7 completed Not Available [facility] 06/20/2023 17:02:35 Past Encounters Encounter ID Performer Location Encounter Start Date Encounter Closed Date Diagnosis/Indication Diagnosis SNOMED-CT Code Diagnosis ICD10 Code Diagnosis Note [id number] Foster Burnett MD [facility] [address] [place] [address] 07/22/2017 11:27:58 07/22/2017 14:52:00 Unstable knee 705902482 M25.483 [id number] FLORINA Duran [facility] [address] [place] [address] 02/14/2018 13:49:08 02/17/2018 15:16:23 Jessica [id number] K92.1 No NSAIDS, increase PPI to BID, send in hemoccult cards Fatigue 93139650 R53.83 Abdominal bloating 14398 9008 R14.0 Shoulder pain 34436693 M 25.854 [id number] SUPRIYA Galindo [facility] [address] [place] [address] 12/30/2018 14:29:43 12/31/2018 09:23:32 Upper respiratory infection 92577542 J06.9 Fatigue 11768556 R53.83 if negative, we will do sleep apnea workup Benign ess ential hypertension 6118712 I10 has stopped taking medicine a few years ago, will check his pressures at home and bring in to next visit. B/P 142/86. Cigar smoker 10473338 Z7 2.0 has not desire to quit at this time. [id number] FLORINA Duran [facility] [address] [place] [address] 07/27/2019 14:33:25 07/27/2019 16:09:39 Foot-drop 6481400 M21.379 Gastro-eso phageal reflux disease with esophagitis 987417159 K21.0 EGD 2018 confirmed. Adult heal examination 740428416 Z00.00 Screening for malignant neoplasm of prostate 990748001 Z71.89 Anemia 721729782 D64.9 Administra tion of influenza vaccine 39665941 Z23 [id number] FLORINA Duran [facility] [address] [place] [address] 08/25/2020 13:00:40 08/25/2020 15:31:51 Gastro-esophageal reflux disease with esophagitis 210474434 K21.00 04/01/18 EGD and colonoscop y per Dr. Blake, needs repeat at 2 years, will address next year Adult heal th examination 462991831 Z00.00 Hyperlipid emia screening 103765478 Z13.220 will fast for upcoming lab at [address] [address] [id number] FLORINA Duran [facility] [address] [place] [address] 11/22/2020 10:50:15 11/23/2020 14:04:16 Exposure to SARS-CoV-2 295762767 Z20.822 will get a test appt for at either [email or web address] or [facility], which will be a week after exposure so he can move back upstairs. Acute sinusitis 51101623 J01.90 Get plenty of rest, push fluids, vaporizer, saline nasal spray, robitussin for cough prn, tylenol for MOLINA prn, call back if persistent colored nasal drainage or sputum, fevers, sinus pain, SOB. [id number] FLORINA Duran [facility] [address] [facility] [address] 08/28/2021 15:19:12 08/28/2021 17:59:04 Gastro-esophageal reflux disease with esophagitis 615691700 K21.00 04/01/18 EGD and colonoscop y per Dr. Blake, needs repeat at 2 years, will address next year Creatine k inase level above reference range 154189568 R74.8 Hyperlipidemia 58174882 E78.5 egg and broth 3 hours ago, has lost 30 pounds since the summer walking and eating right. Not taking statin for a few months Administra tion of influenza vaccine 46575468 Z23 Screening for malignant neoplasm of prostate 045862303 Z71.89 [id number] FLORINA Duran [facility] [address] [facility] [address] 10/11/2021 14:42:46 10/12/2021 13:31:36 Edema of left lower leg 723706423 R60.0 venous doppler negative for DVT, will check arterial doppler with PE findings and smoking history. Compressio n and elevation suggested, and low salt diet, continue regular 5 mile walking. [id number] James Johnson MD [facility] [address] [place] [address] 08/16/2022 15:47:12 08/16/2022 17:31:24 Acute sinusitis 98294753 J01.00 - differenti al diagnosis includes bacterial sinusitis, allergic rhinitis (hay fever), and viral uri, though somewhat less likely secondary to timeframe- treat for bacterial sinusitis with oral antibiotic and oral corticoste roids for anti-infla mmatory effect [id number] FLORINA Duran [facility] [address] [place] [address] 09/28/2022 11:43:51 10/01/2022 11:43:38 Dyspnea on exertion 02043600 R06.09 never had stress test, need this done, needs to quit smoking Systolic murmur 98821609 R01.1 echo ordered and cardiology visit to follow Syncope 886653670 R55 must r/o as cause since occurred after standing quickly, and go from there. Hyperlipidemia 13916913 E78.5 Creatine k inase level above reference range 806414029 R74.8 stopped statin, will reassess risk Screening for malignant neoplasm of prostate 467817083 Z71.89 Subconjunc tival hemorrhage of left eye 8322369273 24713 H11.32 anticipato ry guidance given, if any visual change, call immediatel y Skin lesion 39890366 L98 .9 left back, scabbed ulceration , S&C and path to schedule Peripheral cyanosis 9544 2007 R23.0 likely raynaud's type behavior due to nerve innervatio n issues, with good pulsed, but will confirm with his smoking history. [id number] FLORINA Duran [facility] [address] [facility] [address] [place] [address] 10/10/2022 14:18:46 10/11/2022 11:20:51 Skin lesion 89621973 L98.9 left back, scabbed ulceration , S&C and path sent Acute sinusitis 71883633 J01.90 Get plenty of rest, push fluids, vaporizer, saline nasal spray, robitussin for cough prn, tylenol for MOLINA prn, call back if persistent colored nasal drainage or sputum, fevers, sinus pain, SOB. Left face and eye pain after 7-10 days of cold symptoms, h/o sinus surgery years ago [id number] FLORINA Duran [facility] [address] [place] [address] 12/14/2022 10:24:45 12/17/2022 11:46:10 Rupture of rotator cuff of right shoulder 2499033046 4732182 M75.101 Will refer to ortho now, he is ready to have this fixed now, will try to have MRI done before his visit Adhesive c apsulitis of right shoulder 3541518303 00676 M75.01 [id number] FLORINA Duran [facility] [address] [place] [address] 12/03/2023 10:38:08 12/05/2023 15:27:27 Adult health examination 622975023 Z00.00 colonoscop y due in the fall. No symptoms from GERD as long as he takes his PPI daily, EGD done 2020. UTD on tetanus Screening for malignant neoplasm of prostate 158695787 Z71.89 Hyperlipidemia 55037108 E78.5 per [place], reviewed numbers from September. Long-term drug therapy 920840418 Z79.899 ASA therapy, check CBC yearly Hip pain 53058630 M25.55 9 right side this time, left sciatic and foot drop is chronic. He'd like to put off imaging and any appts until July if he can, but is open to PT, order given. Inflammati on of sacroiliac joint 97614653 M46.1 [id number] FLORINA Duran [facility] [address] [place] [address] 05/18/2024 13:42:28 05/19/2024 09:44:22 Lumbar radiculopathy 609783497 M54.16 known left radicular issues s/p spinal stimulator , unsure if right sided pain is radicular or from the right hip. Will trial kenalog, if no help in 48 hours, he will call before he leaves for his upcoming trip for gabapentin RX. Pain in ri ght hip joint 1162482015 61108 M25.551 with possible IT band issues. If kenalog no help, will check right hip xray. [id number] FLORINA Duran [facility] [address] [place] [address] 08/04/2024 14:01:07 08/05/2024 11:22:50 Right side sciatica 7360304679 61902 M54.31 will consult his [employer] spinal stimulator company, will trial gabapentin . Sciatic suggestion s, donut pillow for driving, ice to the area. MAy need to contact neurosurge ry with preference of image if pain worsens. Increased systolic arterial pressure 00487893 R03.[address] Jasso regularly, last in office this spring BP normal. Will continue to monitor, needs to quit smoking cigars Health Concerns Section Related Observation LastModified by Organization Detai ls LastModified Time None Recorded Concern Status LastModified by Organization Details LastModified Time None Recorded Advance Directives Directive Y: Payers Encounter Date Sequence Insurance Name Policy Number Policy Moffett Covered Member ID Moffett Member ID Guarantor Name 12/14/2022 1 [facility] [id number] Vannessa Fisher [id number] Vannessa Fisher 12/03/2023 1 [facility] [id number] Vannessa Fisher [id number] Vannessa Fisher 05/18/2024 1 [facility] [id number] Vannessa Fisher [id number] Vannessa Fisher 08/04/2024 1 [facility] (MEDICARE REPLACEMENT/A DVANTAGE - PPO) [id number] Vannessa Fisher [id number] Vannessa Fisher Notes Date Note Type Note Provider Name and Address Organization Details Recorded Time 12/14/2022 text/html ShoulderReported bypatient.Hand Dominance:right Location:right Quality:aching; sharp; deep; frequent; constant Severity:mild (as long as he does not move it) Duration:months (just started to flare up the last couple months); years (pt said that it started years ago) Timing:cannot identify Context:cannot identify Alleviating Factors:sitting; lying down (flat) Aggravating Factors:lying down (on his said); gripping; grasping; squeezing; ROM; changing clothes; getting out of bed Associated Symptoms:no weakness; no numbness; no swelling; no redness; no warmth; no buckling; no grinding; no instability; no drainage; no fever; no chills; no weight loss; no change in bowel/bladder habits;tingling;poppin g/clicking(not to much);radiation down arm(sometimes) Previous Surgery:none Prior Imaging:none Previous Injections:none Previous PT:none Work Related:no Working:regular dutyNotes:had huge left shoulder reconstruction years ago, and wanted the right one done at the same time but did not. But did have bicep repair on the right from the elbow [address] Cardenas did the shoulder at [facility]. ROM decreasing, pain with sleeping, putting a shirt on is painstaking. Soumya his is helping him more. FLORINA Duran Attn: Accounting, [place], [address], [facility] 12/16/2022 11:10:57 12/03/2023 text/html New shooting luis antonio n from right hip and butt/SIJ and radiates to the back and down the hamstring or side to the knee, occasionally further. Keeping him up at night. Has been years since he say his neurosurgeon. Ate at 3:30 this AM and fruit. FLORINA Duran Attn: Account[place], [place], [address], [facility] 12/05/2023 13:38:43 05/18/2024 text/html Hip(s)Reported bypatient.Location:[facility] Quality:aching; stabbing; sharp; deep; frequent; not changing Severity:moderate Duration:months Timing:cannot identify Context:cannot identify Alleviating Factors:nothing helps Aggravating Factors:lying down Associated Symptoms:no weakness; no numbness; no tingling; no swelling; no redness; no warmth; no ecchymosis; no catching/locking; no popping/clicking; no buckling; no grinding; no instability; no drainage; no fever; no chills; no weight loss; no change in bowel/bladder habits;radiation down legNotes:Feels it all the time, sitting, standing, wakes him up at night. Not worse with bearing weight. Can sleep better on his right side and on his back but not a back sleeping. pain is only on his right side outer knee to hip. pt wants to talk about getting on gabapentin, now with sciatic type pain right lateral hip pain radiating down lateral side of thigh to the knee, not electrical, no weakness or numbness of the leg, no back pain FLORINA Duran Attn: Account[place], [place], [address], [facility] 05/18/2024 19:18:56 08/04/2024 text/html Hip(s)Reported bypatient.Location:rig ht Quality:aching; sharp; dull; deep; occasional; frequent; not changing Severity:moderate Duration:3+ years Timing:gradual; intermittent episodes lasting:; no pain usually when upright, much worse when sitting, especially with wallet in right back pocket, tender deep buttock, and can shoot down lateral thigh to knee and sometimes across pelvis/groin. Has known lumbar DDD, previous fusion. Context:regarding pt case 07/28/2024 Alleviating Factors:nothing helps; OTC medication (tylenol ibuprofen) Aggravating Factors:sitting; standing; lying down (left side); walking; holding wallet in pocket while sitting Associated Symptoms:no weakness; no numbness; no tingling; no swelling; no redness; no warmth; no ecchymosis; no catching/locking; no popping/clicking; no buckling; no grinding; no instability; no drainage; no fever; no chills; no weight loss; no change in bowel/bladder habits;radiation down leg(to knee) Previous Surgery:none Prior Imaging:x ray (would like to discuss results today) Previous Injections:none Previous PT:none Work Related:no Working:noNotes:pain management put in spinal stimulator. Big difference when initially put in. Group in [place] that put it in [facility]. [facility]. [facility] referred him. FLORINA Duran Attn: Accounting,[address] [facility], [place], [address], [facility] 08/04/2024 19:38:26
--- OUTSIDE RECORDS SUMMARY | 2024-12-09 09:04 | XMS_ITS | Continuity of Care Document ---
Author Organization [facility] Address [address] [place] [address] Phone Care Team Providers Care Broadcast Journalist Name Role Phone Tadeo Vigil MD Unavailable Unavailable Allergies, Adverse Reactions, Alerts Substance Reaction Status Criticality No Known Allergies Active No Inform ation Medications Medication Instructions Dosage Effective Dates (start - stop) Status Comments IBUPROFEN (unknown strength) Not Available - Active TYLENOL (unknown strength) Not Available - Active Procedures Procedure Date OFFICE/OUTPATIENT VISIT EST OFFICE/OUTPATIENT VISIT NEW Advance Directives Directive Yes / No Effective Date File Name No Information Encounters Encounter Description Practice Location Reason(s) For Visit Diagnoses Date Provider Providers Copied on Encounter OFFICE/OUTPA TIENT VISIT EST [facility], [address], [address], tel:[phone] [facility] Chronic bilateral leg pain (chief complaint) Left leg painS/P lumbar fusionLeft foot drop [address] [address] [place], [place], [id number] . tel: [phone] [facility], [address] [place] [address], [address], [place] tel:[phone] [facility] Trochanteric bursitis [address] [address] [place], [place], [id number] . tel: [phone] OFFICE/OUTPA TIENT VISIT NEW [facility], [address], [address], tel:[phone] [facility] Left hip painTrochanteric bursitis [address], [place], [place], [id number] . tel: [phone] Referring Provider: Foster Singh, [address] [place] [address], [address] . tel:[phone] Family History Family Member Type Diagnosis Age At Onset Father Problem (finding) malignant neoplasm of l [place] Mother Problem (finding) Cancer, unknown Payers Payer name Insurance type Covered libertarian ID Authoriza tion(s) [facility] Choice/Choice Plus E2 [id number] Social History Type Description Quantity Date Captured Comments Alcohol Use Details Unknown Caffeine Use Details Unknown Tobacco Use Status Smoking Status No Information Sex Male Chief Complaint And Reason For Visit From encounter dated '05/05/2015 07:30'. Chronic bilateral leg pain (chief complaint) Reason For Referral Reason For Referral No Information Plan Of Treatment Date Type Action Status Referral Ordered: FLUOROSCOPIC GUIDANCE NEEDLE PLACEMENT bursa Appointment date/timeframe: 05/05/2015 ordered History Of Present Illness Encounter Date Complaint History Of Prese nt Illness Chronic bilateral leg pain Functional Status Date Functional Assessmen t No Information Instructions Date Instruction Additional Infor mation Discussed treatment options Rela jesenia to Left hip pain Home exercise program. Related t o Left hip pain Assessments Type Assessment Date assessment Left leg pain assessment S/P lumbar fusion assessment Left foot drop Patient Care Teams Name Effective Dates (start - stop) Status Members No Information
--- OUTSIDE RECORDS SUMMARY | 2024-12-09 09:04 | XMS_ITS | Encounter Summary ---
Author Organization [facility] Address [facility] [place] [address] Care Team Providers Care Freezer Tunnel Operator Name Role Phone Foster Burnett MD Primary Care Provider [phone] ParentLorena Unavailable [phone] ParentLorena Primary Care Provider [phone] Reason for Visit * Reason Onset Date Comments Preprocedure Call 07/09/2018 Encounter Details Date Type Department Care Team (Late st Contact Info) Description 07/09/2018 Pre-Procedure Call [facility] [place] [address] Li Lam MD [address] [place] [address] Preprocedure Call Social History Tobacco Use Types Packs/Day Years Used Date Smoking Tobacco: Former Cigarettes Q uit: 07/01/2018 Cigars Smokeless Tobacco: Never Alcohol Use Standard Drinks/Week Comments Yes 0 (1 standard drink = 0.6 oz pur e alcohol) Sex and Gender Information Value Date Recorded Sex Assigned at Not on file Legal Sex Male 2:45 PM CDT Gender Identity Not on file Sexual Orientation Not on file documented as of this encounter Last Filed Vital Signs Vital Sign Reading Time Taken Comments Blood Pressure - - Pulse - - Temperature - - Respiratory Rate - - Oxygen Saturation - - Inhaled Oxygen Concentration - - Weight 95.3 kg (210 lb) 07/09/2018 12:00 AM CDT Height 175.3 cm (5' 9 ) 07/09/2018 12:00 AM CDT Body Mass Index 31.01 07/09/2018 12:00 AM CDT documented in this encounter Plan of Treatment Upcoming Encounters Date Type Department Care Team (Late st Contact Info) Description 02/26/2025 1:30 PM CDT Office Visit [facility] [address] Jesus Ferris MD [address] [facility] [address] [place] [id number] documented as of this encounter Visit Diagnoses Not on filedocumented in this encounter Care Teams Freezer Tunnel Operator Relationship Specialty Start Date End Date Foster Burnett MD [address] [place] [address] PCP - General FAMILY PRACTICE 07/15/18 12/23/22 Lorena Venegas PA [address] [place] [address] PCP - General FAMILY PRACTICE 12/24/22 Lorena Venegas PA [address] [place] [address] FAMILY PRACTICE 10/05/22 documented as of this encounter
--- OUTSIDE RECORDS SUMMARY | 2024-12-09 09:04 | XMS_ITS | Clinical Summary ---
Author Organization [facility] Address [address] [place] [address] Care Team Providers Care Gasoline Tester Name Role Phone ParentLorena FLORINA Unavailable [phone] Lorena Venegas FLORINA Primary Care Provider [phone] Allergies No known active allergies Medications omeprazole 20 MG capsule Take 1 capsule (20 mg total) by mouth daily. Active aspirin EC (ECOTRIN) 81 MG tablet Take 1 tablet (81 mg total) by mouth daily. Active gabapentin (NEURONTIN) 100 MG capsule Take 3 capsules (300 mg total) by mouth 2 (two) times daily. Active rosuvastatin (CRESTOR) 10 MG tablet TAKE 1 TABLET BY MOUTH EVERY DAY 90 tablet 2 09/02/2024 Active Active Problems Problem Noted Date Diagnosed Date Coronary artery disease invo [place]ving [place] coronary artery of [place] heart without angina pectoris 08/26/2024 Impingement syndrome of right shoulder Nontraumatic incomplete tear of right rotator cu ff 01/22/2023 Sclerosis of aortic valve cusp 11/27/2022 Aortic root dilation 11/27/2022 Dyspnea on exertion 11/02/2022 Systolic murmur 11/02/2022 Precordial pain 11/02/2022 Syncope and collapse 11/02/2022 Abnormal EKG 11/02/2022 Hypercholesterolemia 10/30/2022 S/P arthroscopy of right shoulder 08/29/2018 Arthritis 03/04/2018 Acid reflux 03/04/2018 Chronic pain syndrome 06/11/2016 Undifferentiated somatoform disorder 06/11/2016 Lumbar disc herniation with radiculopathy 2014 Lumbar spondylosis 02/01/2014 Acquired spondylolisthesis 01/25/2014 Synovial cyst 04/16/2013 Cervical spinal stenosis 09/02/2012 Lumbar spinal stenosis 07/10/2012 Degeneration of intervertebral disc of cervical region 03/08/2010 Headache 10/19/2009 Family History Medical History Relation Comments Cancer Father lung No Known Problems Mother Relation Status Comments Brother 1 Alive Brother 2 Alive Daughter Alive Father (Age 66) cancer Mother Alive Sister Alive Son 1 Alive Son 2 Alive Social History Tobacco Use Types Packs/Day Years Used Date Smoking Tobacco: Some Days Cigars Passive Smoke Exposure: Current Smokeless Tobacco: Never Tobacco Cessation:Ready to Q uit: Not Asked; Counseling Given: Not Answered Comments:AMIE to psychosocial rehabilitation counselor Alcohol Use Standard Drinks/Week Comments Yes 0 (1 standard drink = 0.6 oz pure alcohol) 1-2 drinks daily (whiskey, glass of wine or beer with dinner) AUDIT-C Answer Date Recorded Frequency of Alcohol Consumption 2-4 times a sat09/08/2018 Average Number of Drinks Not on file Frequency of Binge Drinking Not on file 08/28 PHQ-2 Answer Date Recorded Patient Health Questionnaire-2 Score 0 01/22/2023 Sex and Gender Information Value Date Recorded Sex Assigned at Not on file Legal Sex Male 2:45 PM CDT Gender Identity Not on file Sexual Orientation Not on file Last Filed Vital Signs Vital Sign Reading Time Taken Comments Blood Pressure 124/78 08/28/2024 1:54 PM CDT Pulse 86 08/28/2024 1:54 PM CDT Temperature 37.5 C (99.5 F) 06/20/2023 3:30 PM CDT Respiratory Rate 18 02/28/2023 2:15 PM CDT Oxygen Saturation 97% 08/28/2024 1:54 PM CDT Inhaled Oxygen Concentration - - Weight 94.3 kg (208 lb) 08/28/2024 1:54 PM CDT Height 175.3 cm (5' 9 ) 08/28/2024 1:54 PM CDT Body Mass Index 30.72 08/28/2024 1:54 PM CDT Plan of Treatment Upcoming Encounters Date Type Department Care Team (Late st Contact Info) Description 02/26/2025 1:30 PM CDT Office Visit [facility] [address] Jesus Jasso MD 3 [facility] [address] [place] [address] Health Maintenance Due Date Last Done Comments Colorectal Cancer Screening Colonoscopy (10 Years) 1960 Pneumococcal Vaccine: 65+ Years (1 of 2 - PCV) 1965 Pneumococcal Vaccine: Pediatrics (0 to 5 Years) and At-Risk Patients (6 to 64 Years) (1 of 2 - PCV) 1965 Hepatitis C 1977 Zoster Vaccines (1 of 2) 2009 RSV Immunization or 60+ Years (1 - Risk 60-74 years 1-dose series) 2019 COVID-19 Vaccine ( season) 2024 09/01/2022, 09/23/2021, 01/03/2021 Influenza Adult (#1) 2024 08/16/2023, 09/01/2022, 08/28/2021, Additional history exists ASCVD LDL 10/09/2024 10/09/2023, 09/28/2022 PHQ-2 (Physician [place]) 10/28/2024 01/22/2023 DTaP, Tdap and Td Vaccines (3 - Td or Tdap) 04/16/2026 04/16/2016, 06/16/2007 AAA SCREENING Completed 10/23/2023 Meningococcal B Vaccine Aged Out No l onger eligible based on patient's age to complete this topic Meningococcal Vaccine Aged Out No yajaira bronwyn eligible based on patient's age to complete this topic RSV Immunizations Under 20 Months Aged Out No longer eligible based on patient's age to complete this topic Medical Devices Implanted Type Area Pleating Supervisor Device Identifier Shelf Expiration Date Model / Serial / Lot Bioinductive Implant W/ Arthro Del Pkg Medium Implanted:Qty: 1 on 02/20/2023 by Dane Cardenas MD at [facility] Graft Right: Shoulder [employer] [place] [id number] 05/08/2025 [id number] / / [id number] Device Fixation Ar[employer]rex Biocomposite Distal Biceps Repair - [id number] Implanted:Qty: 1 on 02/20/2023 by Dane Cardenas MD at [facility] Screw Right: Shoulder [employer] [id number] 12/25/2024 AR-2260 BC / / [id number] Tendon Anchors Implanted:Qty: 1 on 02/20/2023 by Dane Cardenas MD at [facility] Shoulder Components Right: Shoulder [employer] [place] [id number] 11/13/2025 2504-1 / / [id number] Bone Anchors Implanted:Qty: 1 on 02/20/2023 by Dane Cardenas MD at [facility] Shoulder Components Right: Shoulder [employer] [place] [id number] 09/27/2025 [id number] / / [id number] Stimulator Implant Stimulator Implant [employer] [id number] / [id number] / Description:Full body eligib le 12/20/2022 Implant Delivery System, Biocomposite Distal Biceps Repair Implanted:Qty: 1 on 08/29/2018 by Dane Cardenas MD at [facility] Left: Shoulder [employer] 05/27/2020 AR-2260 BC / / [id number] Explanted Type Area Pleating Supervisor Device Identifier Shelf Expiration Date Model / Serial / Lot Bioinductive Implant W/ Arthro Del Pkg Med Explanted:Qty: 1 on 02/20/2023 by Dane Cardenas MD at [facility] Graft Right: Shoulder [employer] [place] [id number] 11/15/2025 [id number] / / [id number] Tendon Anchors Explanted:Qty: 1 on 02/20/2023 by Dane Cardenas MD at [facility] Shoulder Components Right: Shoulder [employer] [place] [id number] 11/13/2025 2504-1 / / [id number] Procedures Procedure Name Priority Date/Time Associated Diagnosis Comments CT CHEST WO CON Routine 10/23/2023 9:48 AM BUCKET CHUCKER Aortic root dilation LIPID PANEL Routine 10/09/2023 from Last 3 Months or Most Recently Relevant to Health Maintenance Results * CT CHEST WO CON (10/23/2023 9:48 AM BUCKET CHUCKER) Anatomical Region Laterality Modality Chest Computed Tomogra phy 10/30/2023 3:53 PM BUCKET CHUCKER Impressions 10/30/2023 4:03 PM BUCKET CHUCKER IMPRESSION: 1. Dilated ascending and descending thoracic aorta without aneurysm. 2. Additional chronic/nonemergent findings as above. Referred By: JESUS JASSO Interpreted By: Diana Salgado DO, 10/30/2023 3:53 PM Narrative 10/30/2023 4:03 PM BUCKET CHUCKER EXAMINATION: CT Chest REPORT DATE: 10/30/2023 3:53 PM INDICATION: Aortic root dilation, no priors COMPARISON(S): None. TECHNIQUE: CT acquisition of the chest. Coronal and sagittal reformatted images provided from the source data. Coronal and sagittal reformatted images were obtained from the source data. A dose lowering technique was utilized for this procedure which may include but is not limited to dose reduction techniques, automated exposure control, and/or the use of iterative reconstruction in accordance with ALARA principle. Contrast: No intravenous contrast. FINDINGS: SUPPORT DEVICES: None. LOWER NECK: Imaged soft tissues of the lower neck are normal. CHEST: Lungs: No consolidation. Central airways are clear. Pleural Space: No pleural effusion or pneumothorax. Mediastinum: Aortic root and arch calcifications. Ascending aorta measuring 3.7 cm at the level of the main pulmonary artery. Descending thoracic aorta measuring 2.9 cm at the level of the main pulmonary artery. Tortuous course of the distal thoracic aorta. Esophagus is normal. Heart: No cardiomegaly or pericardial effusion. Mild to moderate coronary artery calcifications. Lymph nodes: Prominent axillary lymph nodes with normal fatty omar and smooth cortices. UPPER ABDOMEN: Fatty atrophy of the pancreas MUSCULOSKELETAL: Soft tissues: Unremarkable. Bones: No acute osseous abnormality. Spinal stimulator within the posterior spinal canal at the level of T7-8. Moderate right greater than left glenohumeral osteoarthrosis Procedure Note Diana Salgado DO - 10/30/2023 EXAMINATION: CT Chest REPORT DATE: 10/30/2023 3:53 PM INDICATION: Aortic root dilation, no priors COMPARISON(S): None. TECHNIQUE: CT acquisition of the chest. Coronal and sagittal reformattedimages provided from the source data. Coronal and sagittal reformattedimages were obtained from the source data. A dose lowering technique wasutilized for this procedure which may include but is not limited to dosereduction techniques, automated exposure control, and/or the use ofiterative reconstruction in accordance with ALARA principle. Contrast: No intravenous contrast. FINDINGS: SUPPORT DEVICES: None. LOWER NECK: Imaged soft tissues of the lower neck are normal. CHEST: Lungs: No consolidation. Central airways are clear. Pleural Space: No pleural effusion or pneumothorax. Mediastinum: Aortic root and arch calcifications. Ascending aortameasuring 3.7 cm at the level of the main pulmonary artery. Descendingthoracic aorta measuring 2.9 cm at the level of the main pulmonary artery.Tortuous course of the distal thoracic aorta. Esophagus is normal. Heart: No cardiomegaly or pericardial effusion. Mild to moderate coronaryartery calcifications. Lymph nodes: Prominent axillary lymph nodes with normal fatty omar andsmooth cortices. UPPER ABDOMEN: Fatty atrophy of the pancreas MUSCULOSKELETAL: Soft tissues: Unremarkable. Bones: No acute osseous abnormality. Spinal stimulator within theposterior spinal canal at the level of T7-8. Moderate right greater thanleft glenohumeral osteoarthrosis IMPRESSION: 1. Dilated ascending and descending thoracic aorta without aneurysm. 2. Additional chronic/nonemergent findings as above. Referred By: JESUS JASSO Interpreted By: Diana Salgado DO, 10/30/2023 3:53 PM us Jesus Jasso MD CT Final Result * LIPID PANEL (10/09/2023) CHOLESTEROL 156 TRIGLYCERIDES 105 HDL 59 LDL (CALCULATED) 78 NON HDL CHOLESTEROL 97 us Default History Genericprovider LABORATORY Edited Result - Final from Last 3 Months or Most Recently Relevant to Health Maintenance Insurance [facility] Care Teams Gasoline Tester Relationship Specialty Start Date End Date Lorena Venegas PA [address] [place] [address] PCP - General FAMILY PRACTICE 12/24/22 Lorena Venegas PA [address] [place] [address] FAMILY PRACTICE 10/05/22
--- OUTSIDE RECORDS SUMMARY | 2024-12-09 09:05 | XMS_ITS | Encounter Summary ---
Author Organization [facility] Address [facility] [place] [address] Care Team Providers Care Radio Repairman Name Role Phone Foster Burnett MD Primary Care Provider [phone] ParentLorena Unavailable [phone] Lorena Venegas Primary Care Provider [phone] Encounter Details Date Type Department Care Team (Late st Contact Info) Description 11/29/2022 [employer] Message Enc [facility] [address] [address] [employer], [facility] Provider Heart Monitor. Social History Tobacco Use Types Packs/Day Years Used Date Smoking Tobacco: Some Days Cigarettes Last attempted to quit: 07/01/2018 Cigars Smokeless Tobacco: Never Comments:Most day cigar smok er Alcohol Use Standard Drinks/Week Comments Yes 0 (1 standard drink = 0.6 oz pure alcohol) 1-2 drings daily (whiskey, glass of wine or beer with dinner) AUDIT-C Answer Date Recorded Frequency of Alcohol Consumption 2-4 times a sat09/08/2018 Average Number of Drinks Not on file 018 Frequency of Binge Drinking Not on file 08/28 Sex and Gender Information Value Date Recorded Sex Assigned at Not on file Legal Sex Male 2:45 PM CDT Gender Identity Not on file Sexual Orientation Not on file COVID-19 Exposure Response Date Recorded In the last 10 days, have yo u been in contact with someone who was confirmed or suspected to have Coronavirus/COVID-19? No / Unsure 11/30/2022 11:24 AM NEIGHBORHOOD AIDE documented as of this encounter Plan of Treatment Upcoming Encounters Date Type Department Care Team (Late st Contact Info) Description 02/26/2025 1:30 PM CDT Office Visit [facility] [address] Jesus Ferris MD 3 [facility] [address] [place] [phone] documented as of this encounter Visit Diagnoses Not on filedocumented in this encounter Care Teams Radio Repairman Relationship Specialty Start Date End Date Foster Burnett MD [address] [place], [place] [phone] PCP - General FAMILY PRACTICE 07/15/18 12/23/22 Lorena Venegas PA [address] [place], [place] [phone] PCP - General FAMILY PRACTICE 12/24/22 Lorena Venegas PA [address] [place], [place] [phone] FAMILY PRACTICE 10/05/22 documented as of this encounter
--- OUTSIDE RECORDS SUMMARY | 2024-12-09 09:05 | XMS_ITS | Encounter Summary ---
Author Organization [facility] Address [address] [place] [address] Care Team Providers Care Tree Expert Name Role Phone Foster Burnett MD Primary Care Provider [phone] ParentLorena Unavailable [phone] ParentLorena Primary Care Provider [phone] Encounter Details Date Type Department Care Team (Late Contact Info) Description 10/05/2022 Abstract [facility] [address] Wily Vogt [place] Social History Tobacco Use Types Packs/Day Years [...] Encounters Date Type Department Care Team (Late Contact Info) Description 02/26/2025 1:30 PM CDT Office Visit [facility] [address] Jesus Ferris MD 3 [facility] [address] [place] [address] documented as of this encounter Procedures Procedure Name Priority Date/Time Associated Diagnosis Comments CBC, MANUAL DIFF Routine 12/03/2023 COMPREHENSIVE METABOLIC PANEL Routine 10/09/2023 LIPID PANEL Routine 10/09/2023 COMPREHENSIVE METABOLIC PANEL Routine 09/29/2022 CBC (OUTSIDE LAB) Routine 09/28/2022 PROSTATE SPECIFIC ANTIGEN,TOTAL Routine 09/28/2022 LIPID PANEL Routine 09/28/2022 CK (CPK) Routine 09/28/2022 documented in this encounter Results * CBC, MANUAL DIFF (12/03/2023) Pathologist [facility] WBC 4.9 HGB 14.8 HCT 43.7 PLT 241 us Default History Genericprovider LABORATORY Final Result * COMPREHENSIVE METABOLIC PANEL (10/09/2023) Pathologist [facility] SODIUM S/P/B 138 GLUCOSE 90 mg/dL AST 31 BUN 12 CREATININE S/P/B 1.01 0.7 - 1.3 CALCIUM S/P/B 9.2 POTASSIUM S/P/B 4.9 CHLORIDE S/P/B 103 ALT 38 GFR ESTIMATE 83 us Default History Genericprovider LABORATORY Edited Result - Final * LIPID PANEL (10/09/2023) Pathologist [facility] CHOLESTEROL 156 TRIGLYCERIDES 105 HDL 59 LDL (CALCULATED) 78 NON HDL CHOLESTEROL 97 us Default History Genericprovider LABORATORY Edited Result - Final * COMPREHENSIVE METABOLIC PANEL (09/29/2022) Pathologist [facility] SODIUM S/P/B 137 POTASSIUM S/P/B 4.5 CO2 28 CHLORIDE S/P/B 99 GLUCOSE 98 mg/dL CALCIUM S/P/B 9.3 BUN 12 CREATININE S/P/B 0.96 0.7 - 1.3 EGFR NON-AFR. AMER. 89 <=90 ALKALINE PHOSPHATASE S/P/B 79 ALT 22 AST 26 BILIRUBIN TOTAL S/P/B 0.5 ALBUMIN S/P/B 4.7 3.5 - 5.0 TOTAL PROTEIN S/P/B 7.2 GLOBULIN 2.5 09/29/2022 Default History Genericprovider LABORATORY Final Result * PROSTATE SPECIFIC ANTIGEN,TOTAL (09/28/2022) Pathologist [facility] PSA 0.96 09/28/2022 Default History Genericprovider LABORATORY Final Result * LIPID PANEL (09/28/2022) Pathologist [facility] CHOLESTEROL 233 HDL 64 TRIGLYCERIDES 101 NON HDL CHOLESTEROL 169 LDL (CALCULATED) 148 09/28/2022 Default History Genericprovider LABORATORY Final Result * CK (CPK) (09/28/2022) Pathologist [facility] CPK 361 09/28/2022 Default History Genericprovider LABORATORY Final Result * CBC (OUTSIDE LAB) (09/28/2022) Pathologist [facility] WBC 4.8 HGB 14.0 HCT 41.8 PLT 284 09/28/2022 Default History Genericprovider LAB-OUTSIDE/ABST RACTED Edited Result - Final documented in this encounter Visit Diagnoses Not on filedocumented in this encounter Care Teams Tree Expert Relationship Specialty Start Date End Date Foster Burnett MD [address] [place] [address] PCP - General FAMILY PRACTICE 07/15/18 12/23/22 Lorena Venegas PA [address] [place], [place] [phone] PCP - General FAMILY PRACTICE 12/24/22 ParentLorena PA [address] [place], [place] [phone] FAMILY PRACTICE 10/05/22 documented as of this encounter
[2024-12-09 09:39] LABS: Basophils Absolute Auto 0.1 K/mm3 (0.0-0.1); Basophils Percent Auto 0.8 % (0.2-1.2); Eosinophils Absolute Auto 0.2 K/mm3 (0-0.3); Eosinophils Percent Auto 2.3 % (0-4.4); Hematocrit 44.4 % (42.0-52.0); Hemoglobin 14.4 g/dL (14.0-18.0); Immature Granulocyte Absolute 0.03 K/mm3 (0.00-0.031); Immature Granulocyte Percent A 0.4 % (0-0.5); Lymphocytes Absolute Auto 0.96 K/mm3 (0.9-3.2); Lymphocytes Percent Auto 13.2 % (18.3-44.2); Mean Corpuscular HGB Conc 32.4 g/dl (32-36); Mean Corpuscular Hemoglobin 30.8 pg (26-34); Mean Corpuscular Volume 95.1 fl (80-100); Mean Platelet Volume 10.3 fl (7.4-10.4); Monocytes Absolute Auto 0.8 K/mm3 (0.1-0.6); Monocytes Percent Auto 11.3 % (2.6-8.5); Neutrophils Absolute Auto 5.2 K/mm3 (1.3-6.7); Platelet Count Result 223 k/mm3 (150-375); Red Blood Count 4.67 M/mm3 (4.6-6.20); Red Cell Distribution Width 13.3 % (11.5-14.5); White Blood Count 7.3 K/mm3 (4.5-10.0)
[2024-12-09 09:47] LABS: INR 0.9; Prothrombin Time 13.1 Seconds (11.1-14.7)
[2024-12-09 09:49] LABS: Partial Thromboplastin Time 26.4 Seconds (22.3-36.8)
[2024-12-09 09:50] LABS: Alanine Aminotransferase 66 U/L (6-50); Albumin Level 4.8 g/dL (3.5-5.1); Alkaline Phosphatase 76 U/L (38-126); Anion Gap 9 mmol/L (4-12); Aspartate Amino Transferase 54 U/L (17-59); Bilirubin,Total 0.7 mg/dL (0.2-1.3); Blood Urea Nitrogen 16 mg/dL (9-20); Calcium 9.3 mg/dL (8.4-10.2); Carbon Dioxide 27 mmol/L (22-30); Chloride 102 mmol/L (98-107); Cholesterol 164 mg/dL (0-200); Creatine Kinase 160 U/L (55-170); Estimated Glomerular Filt Rate > 60; Glucose 91 mg/dL (65-110); HDL Direct 65 mg/dL; Potassium 4.3 mmol/L (3.4-5.0); Sodium 138 mmol/L (137-145); Triglycerides 318 mg/dL (<150)
[2024-12-09 10:02] LABS: LDL Cholesterol Direct 60 mg/dL
[2024-12-09 10:20] LABS: Prostate Specific Antigen 1.7 ng/mL (< OR = 4.0)
== END 2024-12-09 08:28 | disposition home or self-care (01) ==
PROVIDERS: PCP Physician Assistant; Visit Provider Neurological Surgery
DX: E78.5 Hyperlipidemia, unspecified (principal); I10 Essential (primary) hypertension; Z45.42 Encounter for adjustment and management of neurostimulator; Z71.89 Other specified counseling; Z12.5 Encounter for screening for malignant neoplasm of prostate
CPT/HCPCS: 36415; 71046; 80053; 80061; 82550; 84153; 84443; 85025; 85610; 85730; 93005; G0103

== ENCOUNTER 2025-02-17 14:00 | Outpatient (RCR) | payer MEDICARE, SELFPAY ==
--- NOTE | 2025-02-09 14:29 | OPREHPOC ---
Outpatient Therapy Plan of Care This is a Multidisciplinary Plan of Care that may contain components documented by all disciplines (PT, OT, and ST.) PT Problem 1 PT Problem #1 Knowledge Deficit PT Goal 1 Goal / Goal Update [place] with HEP Target Visit 4 PT Goal 2 Goal / Goal Update Report no pain greater than 2/10 for 2 consecutive weeks Target Visit 8 PT Problem 2 PT Problem #2 Impaired Range of Motion PT Goal 1 Goal / Goal Update 1. Achieve 130 degrees left knee flexion ROM PT Problem 3 PT Problem #3 Impaired Endurance PT Goal 1 Goal / Goal Update 1. Ambulate independent of AD 2 Ambulate with even stride length bilaterally Target Visit 8 PT Problem 4 PT Problem #4 Impaired Strength PT Goal 1 Goal / Goal Update Improve left gross knee strength to 5/5 to improve stability for ADL performance Target Visit 8 PT Goal 1 Goal / Goal Update Demonstrate sit to stand x 5 with no use of UE for functional squatting capacity improvement Target Visit 8
--- NOTE | 2025-02-09 14:30 | PTOPEVAL1 ---
Assessment and note entered by Tanner Araiza, PT Evaluation Information Assessment Status Evaluation Diagnosis Sprain of left knee ICD-10 Condition Codes (PT) Pain in left knee M25.562 Onset 01/29/25 Subjective Information Repots that he had a fall in the yard when his right foot flipped out from under him and he collapsed on his left knee. He felt a loud pop in the knee. He had to pull himself up on a fence to get up. When he woke up the next morning he could not put pressure on his knee. X-rays were negative for bone damage. He is able to elevate and relieve pain. He has been wearing a knee brace. Pain is elevated when he is on his feet. Reported Pain Level Pain Score 1: Self Report Assessment PT Clinical Summary Patient presented with minor losses in knee ROM and mild edema this date. He has substantial alterations in gait pattern affecting his mobility and function at this time. Point tenderness noted to lateral distal quad and patellar bursa. Evidence of bursitis is present. Patient will benefit from skilled therapy to address these deficits to improve gross objective measures of knee and improve overall pain free function. Plan of Care Treatment Frequency and 1-2x/week for 8 visits Duration These treatments will address the objective and functional deficits as defined above. The patient will be advanced safely and appropriately in order for the patient to progress towards his/her prior level of function. Additional exercises will be introduced and as well as a comprehensive home exercise program upon discharge, if needed, ?to ensure carryover of functional gains achieved in the clinic. This treatment plan has been reviewed and agreement upon by the patient.
--- NOTE | 2025-02-19 10:51 | PCPTNOTE ---
Patient called to cancel his appointment today reporting that his doctor ordered an MRI.
--- NOTE | 2025-02-25 09:48 | PCPTNOTE ---
Patient canceled due to have MRI soon.
--- NOTE | 2025-03-01 08:05 | PCPTNOTE ---
Patient cancelled his appointment on 03/01 as well as 03/04 as he is having an MRI and his doctor wants him to hold off on therapy until after.
--- NOTE | 2025-05-04 08:26 | PTOPDC ---
Assessment and note entered by Tanner Araiza, PT Evaluation Information Assessment Status Discharge - Pt Not Present Diagnosis Sprain of left knee ICD-10 Condition Codes (PT) Pain in left knee M25.562 Onset 01/29/25 Subjective Information Patient was instructed to hold off on therapy until after MRI. Last communication with PT was on 03/01/25. Assessment PT Clinical Summary Patient to be discharged at this time per MD request to follow up with MRI. Please refer to evaluation note for discharge status. Plan of Care PT Services Indicated Yes
== END 2025-05-05 11:42 | disposition home or self-care (01) ==
LOC: ANHGOSHPT 14:00
PROVIDERS: PCP Physician Assistant
DX: S83.92XA Sprain of unspecified site of left knee, initial encounter (principal)
CPT/HCPCS: 97110; 97140; 97161; 97530